=== PATIENT | male | born 1950 | race Caucasian/White ===

== ENCOUNTER 2019-10-17 21:24 | Emergency (ER) | payer MEDICARE, SELFPAY ==
[2019-10-17 21:52] VITALS: BP 130/71; PULSE 113; RESP 18; TEMP 36.5; O2SAT 98; BMI 33.0
--- NOTE | 2019-10-17 23:27 | W.ED.EYEPROB ---
HPI - Eye Problem General: Chief complaint: Eye Problems Stated complaint: LEFT EYE PROBLEMS Time Seen by Provider: 10/17/19 21:48 Source: patient Mode of arrival: ambulatory Limitations: no limitations History of Present Illness: HPI Narrative: Patient comes in today with complaints of eye redness to the left eye. Patient denies any injury or vision change. Patient appears well. Patient appears in no acute distress. Review of Systems General: Reports: 10 or more systems reviewed and unremarkable except in HPI and below Eyes: Reports: eye redness [facility] ED PFSH: Family History (Updated 06/25/19 @ 09:51 by Jessica Foster RN) Mother Diabetes Myocardial infarction Father Hypertension Myocardial infarction Social History Smoking and tobacco status: never smoked Physical Exam Const: COMMON NORMALS: no acute distress and patient oriented x3 GENERAL APPEARANCE: cooperative HENMT: COMMON NORMALS: normocephalic, TM's normal bilaterally and Normal external nose present HEAD & SCALP: normal to inspection and normocephalic NOSE: Normal external nose present TYMPANIC MEMBRANE: TM's normal bilaterally MOUTH: Normal oral and palatal mucosa present THROAT: posterior oropharynx normal Eye: COMMON NORMALS: Equal, round and reactive pupils present VISUAL ACUITY: Yes acuity normal ALIGNMENT: Yes alignment normal CONJUNCTIVA: Yes conjunctival abnormal (To the left eye we note a subconjunctival hemorrhage to the 4 o'clock position with spreading outward redness.) PUPIL: Yes Equal, round and reactive pupils present Neck/C-Spine: COMMON NORMALS: full ROM Lymph: LYMPHATIC: no lymphadenopathy noted Chest: COMMONS NORMALS: normal inspection of the chest Resp: COMMON NORMALS: normal respiratory effort EFFORT & INSPECTION: Yes able to speak in complete sentences Cardio: COMMON NORMALS: regular rate and regular rhythm RATE: regular rate RHYTHM: regular rhythm GI: COMMON NORMALS: non-tender : COMMON NORMALS: Yes no CVA tenderness BLADDER/KIDNEY EXAM: Yes no CVA tenderness Back/Pelvis: COMMON NORMALS: no CVA tenderness and thoracic and lumbar spine normal to inspection Extremity: COMMON NORMALS: normal to inspection Neuro: COMMON NORMALS: patient oriented x3 and moves all extremities Psych: COMMON NORMALS: mental status grossly normal and cooperative Skin: COMMON NORMALS: no rashes or lesions noted GENERAL SKIN EXAM: no rashes or lesions noted Course Vital Signs: Vital signs: Vital Signs Temperature 97.7 F 10/17/19 21:52 Pulse Rate 110 H 06/13/20 23:32 Respiratory Rate 18 10/17/19 23:32 Blood Pressure 129/74 10/17/19 23:32 Pulse Oximetry 97 10/17/19 23:32 MDM - Eye Problem MDM Narrative: Medical decision making narrative: Patient came in for concern of redness to the left eye. On exam we noted a ruptured blood vessel to the left cornea. Patient in normal acuity. Patient had PERRLA. No acute distress was noted. Differential diagnosis includes subconjunctival hemorrhage, laceration, corneal abrasion. Patient was pain-free and no vision normal acuity was noted. Recommended treatment for subconjunctival hemorrhage with follow-up with eye intensive care nurse in 3 days. Patient reported understanding agreed to plan. Discharge Plan Discharge Patient Disposition: Home, Self-Care Clinical Impression: Subconjunctival hemorrhage Qualifiers: Laterality: left Qualified Code(s): H11.32 - Conjunctival hemorrhage, left eye Condition: Stable Prescriptions: No Action pantoprazole 40 mg tablet,delayed release (DR/EC) 40 mg PO DAILY RF: 0 warfarin 5 mg tablet 5 mg PO DAILY RF: 0 pyridostigmine bromide 60 mg tablet 60 mg PO QID RF: 0 loratadine 10 mg tablet 10 mg PO DAILY PRNRF: 0 hydrocodone-acetaminophen 5-325 mg tablet 1 tab PO BID PRNRF: 0 aspirin [Adult Low Dose Aspirin] 81 mg tablet,delayed release (DR/EC) 81 mg PO DAILY RF: 0 fluticasone propionate [Allergy Relief (fluticasone)] 50 mcg/actuation spray,suspension 1 spray INTRANASAL DAILY RF: 0 lisinopril 20 mg tablet 20 mg PO DAILY RF: 0 metformin 1,000 mg tablet 1,000 mg PO BID RF: 0 mycophenolate mofetil [CellCept] 500 mg tablet 500 mg PO BID RF: 0 nitroglycerin [Nitrostat] 0.4 mg tablet, sublingual 0.4 mg SUBLINGUAL Q5M PRNRF: 0 Xarelto 20 mg tablet 20 mg PO DAILY 30 Days Qty: 30 RF: 5 diltiazem HCl 60 mg tablet 60 mg PO BID 30 Days Qty: 60 RF: 3 Discharge Orders: Discharge Order (Routine); Ordered 10/17/19 Ordered By: Maynor Edouard Referrals: Shabbir Mckenzie Jr, MD [Primary Care Provider] - Discharge Diet: Usual diet Discharge Activity: Increase activity as tolerated Patient Instructions: Subconjunctival Hemorrhage (ED) Activity Restrictions/Additional Instructions: Avoid rubbing the eye. Use liquid tears for comfort. Activity as tolerated. Follow-up with eye intensive care nurse in 3 days for recheck. Return to the ER for changes in vision or severe pain to the eye. He usually takes 1 to 2 weeks for the blood to reabsorb. Discharge Date/Time: 10/17/19 23:39 Coding Level of Care Code ED Supervisor Prep for Chg Fwd Exam Comprehensive
[2019-10-17 23:32] VITALS: BP 129/74; PULSE 110; RESP 18; O2SAT 97
[2019-10-17 23:37] VITALS: BP 129/74; PULSE 78; RESP 16; O2SAT 99
== END 2019-10-17 23:39 | disposition home or self-care (01) ==
PROVIDERS: Emergency Provider Nurse Practitioner Family; PCP Family Medicine
DX: H11.32 Conjunctival hemorrhage, left eye (principal); Z79.01 Long term (current) use of anticoagulants; Z79.82 Long term (current) use of aspirin
CPT/HCPCS: 12345; 99282

== ENCOUNTER 2019-11-06 10:21 | Emergency (ER) | payer MEDICARE, SELFPAY ==
[2019-11-06] VITALS (7 sets, daily range): BP systolic 91–132; BP diastolic 42–70; PULSE 90–115; RESP 14–20; TEMP 36.6; O2SAT 93–98; BMI 33.5
--- NOTE | 2019-11-06 10:42 | XR_ITS ---
WS: [id number] PORTABLE CHEST HISTORY: SOB COMPARISON: 12/02/2018 Interval placement of a dialysis catheter via the RIGHT jugular vein in good position since 12/02/2018 . Tips overlie the distal SVC and RIGHT heart. Lungs are clear and well expanded. Minimal blunting of the RIGHT costophrenic angle. Cardiac size: Moderately enlarged cardiac silhouette. Mediastinum/Aorta: Moderate widening of the mediastinum. No osseous abnormality seen. XR/XR chest 1V portable 82030 IMPRESSION: 1. Increasing cardiac size and mediastinal widening. Pericardial effusion shou ld be considered as a possible etiology. 2. No pneumonia. 3. No pulmonary congestion. 4. Small RIGHT effusion suspected.
--- NOTE | 2019-11-06 10:43 | ECG_ITS ---
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 Measurements Intervals [place] Rate: 87 P: 62 [place]: 216 QRS: 58 QRSD: 84 T: 52 QT: 319 QTc: 385 Interpretive Statements SINUS RHYTHM WITH FIRST DEGREE AV BLOCK Compared to ECG 12/02/2018 08:49:32 No significant changes Electronically Signed On 11-07-2019 13:44:36 CDT by Rafiq Rodriguez M.D. [id number] f
--- NOTE | 2019-11-06 10:45 | ED_ITS ---
HPI - General Adult General: Chief complaint: General Medical Stated complaint: back pain/r side pain/abd swelling Time Seen by Provider: 11/06/19 10:31 History of Present Illness: HPI narrative: Patient is a 69-year-old male who comes to the ED with swelling in the abdomen, lower extremities, back pain, decreased urination and shortness of breath. Patient has a past medical history of A. fib, hypertension myasthenia gravis, diabetes and GERD. Patient has had 6 pound weight gain over the last 5 days and his abdominal girth has increased to 5 inches over the last 5 days as well. He is having increased swelling in both right and left lower extremities. Patient says he is having increased shortness of breath as well. Patient reports acute on chronic back pain that has progressively gotten worse over the last 5 days. Patient also reporting decreas ed urine output over the last 24 hours. Denies any hematuria or dysuria. Patient is also complaining of some mild abdominal pain on the left lower quadrant. Denies any fever, chills, cough, chest pain, bladder or bowel symptoms. Associated symptoms: Reports dyspnea; Deny chest pain, headache(s), nausea, rash, palpitations or vomiting Review of Systems Const: Denies: fever(s), chills or fatigue Eyes: Denies: change in vision or eye discomfort ENMT: Denies: throat pain, odynophagia, nasal discharge or nasal congestion Card: Reports: edema and swelling of feet/ankles; Denies: chest pain or palpitations Resp: Reports: dyspnea; Denies: productive cough or non-productive cough GI: Reports: abdominal pain (he thinks abdominal pain is due to increasing lumbar pain); Denies: nausea, vomiting, diarrhea, constipation or hematochezia : Denies: flank pain, difficulty urinating, dysuria or hematuria Musc: Reports: back pain and extremity swelling; Denies: neck pain Skin/Breast: Denies: rash or new lesions Neuro: Denies: headache(s), numbness in extremities or weakness in extremities PFSH ED PFSH: Medical History Anticoagulant long-term use Arthritis HTN (hypertension) Hx of atrial flutter Hyperlipidemia Hypothyroidism Myasthenia gravis Obesity Family History Mother Diabetes Myocardial infarction Father Hypertension Myocardial infarction Social History Smoking and tobacco status: never smoked Physical Exam Const: COMMON NORMALS: patient oriented x3 and alert GENERAL APPEARANCE: cooperative and ill appearing (Patient was laying very still and complaining of intense back pain.) HENMT: COMMON NORMALS: normocephalic HEAD & SCALP: normocephalic MOUTH: Normal oral and palatal mucosa present THROAT: posterior oropharynx normal and uvula midline Eye: COMMON NORMALS: Equal, round and reactive pupils present PUPIL: Yes Equal, round and reactive pupils present Neck/C-Spine: COMMON NORMALS: supple GENERAL: Yes normal visual inspection Resp: COMMON NORMALS: normal respiratory effort, No retractions, No use of accessory muscles and clear to auscultation bilaterally EFFORT & INSPECTION: Yes able to speak in complete sentences, No respiratory distress and No labored AUSCULTATION: clear to auscultation bilaterally Cardio: COMMON NORMALS: regular rate, regular rhythm, S1 normal heart sound present, S2 normal heart sound present, No gallops present (Cardio), No clicks present (Cardio), No murmurs present (Cardio) and Peripheral pulses 2+ throughout RATE: regular rate RHYTHM: regular rhythm HEART SOUNDS: S1 normal heart sound present and S2 normal heart sound present PERIPHERAL PULSES: Peripheral pulses 2+ throughout GI: COMMON NORMALS: Normal to inspection, nondistended, normoactive bowel sounds present, Soft to palpation and no masses PALPATION: Yes Soft to palpation and Yes Tenderness to palpation present (GI) Details: LLQ (Mild tenderness, but patient thinks that this pain is due to acute on chronic lower back pain.) : COMMON NORMALS: Yes no CVA tenderness BLADDER/KIDNEY EXAM: Yes no CVA tenderness Back/Pelvis: COMMON NORMALS: no CVA tenderness Extremity: GENERAL: Yes edema (3+ pitting edema on left lower extremity from feet up into lower leg. 2+ pitting edema in right lower extremity from feet to just above ankle.) Neuro: COMMON NORMALS: patient oriented x3 and moves all extremities SENSORIUM/ORIENTATION: Yes alert Skin: COMMON NORMALS: no rashes or lesions noted GENERAL SKIN EXAM: no rashes or lesions noted and dry skin Course Vital Signs: Vital signs: Vital Signs Temperature 97.9 F 11/06/19 10:34 Pulse Rate 111 H 11/06/19 17:13 Respiratory Rate 20 H 11/06/19 17:13 Blood Pressure 112/70 11/06/19 17:13 Pulse Oximetry 96 11/06/19 16:51 MDM - General Adult MDM Narrative: Medical decision making narrative: Patient presents to the ED with fluid retention, and increased weight gain of 6 pounds in the last 5 days and worsening lower back pain. Patient has a past medical history of hypert ension, myasthenia gravis, hyperlipidemia and hypothyroidism. Patient has 3+ and 2+ pitting edema of right and left lower extremities respectively. EKG showed normal sinus rhythm with no ST segment elevation or depression. Patient's first troponin was 28 and second draw was 22.89. This rule out any acute infarct. Patient's BNP was 167 and CMP was unremarkable. Chest x-ray showed increasing cardiac size and mediastinal widening. CV echo was ordered and showed no pericardial effusion and an ejection fraction of 62%. Venous duplex of both right and left lower extremity showed no clots or DVTs. Patient was given Lasix while here in the ED and had increased urination of fluid while here. Patient was sent home with 1 dose of Lasix to take either tomorrow or Saturday for fluid retention. Patient sees his PCP on Saturday and his junior legal secretary this coming Saturday. He was told to go to those appointments to further discuss possible diuretic to help with fluid retention. He was told he can return to ED if he has any worsening symptoms. Patient understood and agreed with plan. Lab Data: Attestation: I reviewed the patient's lab results. Labs: Lab Results 11/06/19 11/06/19 11/06/19 Range/Units 11:10 11:10 11:10 WBC 10.8 H (4.0-10.0) 10^3/ uL RBC 3.86 L (4.1-5.3) 10^6/u L Hgb 10.2 L (11.7-16.6) g/dL Hct 34.4 L (42.0-52.0) % MCV 89.1 (80-94) fL MCH 26.4 L (28.0-34.0) pg MCHC 29.7 L (30.0-36.0) g/dL RDW 16.1 H (12.1-15.1) % Plt Count 267 (130-400) 10^3/c mm MPV 8.7 (7.4-10.4) fL Neut % (Auto) 82.7 % Lymph % (Auto) 7.0 % [place] % (Auto) 5.7 % Eos % (Auto) 0.2 % Baso % (Auto) 0.2 % Neut # (Auto) 8.9 H (1.8-7.7) 10^3/u L Lymph # (Auto) 0.8 (0.8-4.8) 10^3/u L [place] # (Auto) 0.6 (0.2-0.9) 10^3/u L Eos # (Auto) 0.0 (0.0-0.8) 10^3/u L Baso # (Auto) 0.0 (0.0-0.1) 10^3/u L Nucleated RBC % (a uto) 0.6 % Nucleated RBCs # 0.1 /100WBC ESR 11 H (0-10) mm/hr Sodium 136 (136-145) mmol/L Potassium 4.7 (3.5-5.1) mmol/L Chloride 97 L (98-107) mmol/L Carbon Dioxide 25 (22-29) mmol/L Anion Gap 18.7 (5-19) BUN 17 (8-23) mg/dL Creatinine 0.6 L (0.7-1.2) mg/dL GFR Calculation 134.0 H (90-130) mL/min Glucose 123 H (65-115) mg/dL Calculated Osmolal ity 280 L (285-295) mOsm/k g Calcium 9.6 (8.5-10.5) mg/dL Total Bilirubin 0.2 (0.15-1.2) mg/dL AST 26 (0-40) U/L ALT 54 H (0-41) U/L Alkaline Phosphata se 109 (40-130) IU/L Troponin T Baselin e (0-15) ng/L Troponin T 120 Min [place] (0-15) ng/L Delta Troponin T (0-10) ABS# C-Reactive Protein 1.4 (0.0-4.9) mg/L NT-Pro-B Natriuret Pep 167 H (0-125) pg/mL Total Protein 5.7 L (6.6-8.7) g/dL Albumin 3.7 (3.5-5.2) g/dL Globulin 2.0 (1.3-4.6) g/dL Lipase 43 (13-60) U/L Urine Color (Yellow) Urine Appearance (CLEAR) Urine pH (5-7) Ur Specific Gravit y (1.005-1.030) Urine Protein (Negative) Urine Glucose (UA) (Normal) Urine Ketones (Negative) Urine Blood (Negative) Urine Nitrate (Negative) Urine Bilirubin (NEGATIVE) Urine Urobilinogen (Negative) mg/dL Ur Leukocyte Staci ase (Negative) Urine RBC (0-2) /hpf Urine WBC (0-5) /hpf Ur Squamous Epith Cells (0-5) Calcium Oxalate Cr ystal /hpf Urine Bacteria (NONE) Urine Sperm 11/06/19 11/06/19 11/06/19 Range/Units 11:10 11:51 13:20 WBC (4.0-10.0) 10^3/ uL RBC (4.1-5.3) 10^6/u L Hgb (11.7-16.6) g/dL Hct (42.0-52.0) % MCV (80-94) fL MCH (28.0-34.0) pg MCHC (30.0-36.0) g/dL RDW (12.1-15.1) % Plt Count (130-400) 10^3/c mm MPV (7.4-10.4) fL Neut % (Auto) % Lymph % (Auto) % Stan[place] % (Auto) % Eos % (Auto) % Baso % (Auto) % Neut # (Auto) (1.8-7.7) 10^3/u L Lymph # (Auto) (0.8-4.8) 10^3/u L [place] # (Auto) (0.2-0.9) 10^3/u L Eos # (Auto) (0.0-0.8) 10^3/u L Baso # (Auto) (0.0-0.1) 10^3/u L Nucleated RBC % (a uto) % Nucleated RBCs # /100WBC ESR (0-10) mm/hr Sodium (136-145) mmol/L Potassium (3.5-5.1) mmol/L Chloride (98-107) mmol/L Carbon Dioxide (22-29) mmol/L Anion Gap (5-19) BUN (8-23) mg/dL Creatinine (0.7-1.2) mg/dL GFR Calculation (90-130) mL/min Glucose (65-115) mg/dL Calculated Osmolal ity (285-295) mOsm/k g Calcium (8.5-10.5) mg/dL Total Bilirubin (0.15-1.2) mg/dL AST (0-40) U/L ALT (0-41) U/L Alkaline Phosphata se (40-130) IU/L Troponin T Baselin e 28 H (0-15) ng/L Troponin T 120 Min [place] 22.89 H (0-15) ng/L Delta Troponin T -5.11 L (0-10) ABS# C-Reactive Protein (0.0-4.9) mg/L NT-Pro-B Natriuret Pep (0-125) pg/mL Total Protein (6.6-8.7) g/dL Albumin (3.5-5.2) g/dL Globulin (1.3-4.6) g/dL Lipase (13-60) U/L Urine Color Yellow (Yellow) Urine Appearance Clear (CLEAR) Urine pH 7 (5-7) Ur Specific Gravit y 1.020 (1.005-1.030) Urine Protein Neg (Negative) Urine Glucose (UA) Norm (Normal) Urine Ketones Negative (Negative) Urine Blood Neg (Negative) Urine Nitrate Negative (Negative) Urine Bilirubin Neg (NEGATIVE) Urine Urobilinogen Norm (Negative) mg/dL Ur Leukocyte Staci ase Negative (Negative) Urine RBC None (0-2) /hpf Urine WBC None (0-5) /hpf Ur Squamous Epith Cells None (0-5) Calcium Oxalate Cr ystal Rare /hpf Urine Bacteria Trace (NONE) Urine Sperm 1+ Imaging Data^: CXR: Attestation: I personally reviewed and interpreted this imaging study as follows: Radiologist's impression: [address] [place] [address] XRay Report Signed Patient: Blaine Rodriguez Unit #: [id number] : 1950 [id number] Age/Sex: 69 / M ADM Date: 11/06/19 Loc: ER Room/Bed: Attending Dr: Ordering Provider/Ordering MD: Miguelito Flores Date of Service: 11/06/19 Procedure(s): XR chest 1V portable [id number] Accession Number(s): [id number] Report Number: [id number] WS: [id number] PORTABLE CHEST HISTORY: SOB COMPARISON: 12/02/2018 Interval placement of a dialysis catheter via the RIGHT jugular vein in good position since 12/02/2018. Tips overlie the distal SVC and RIGHT heart. Lungs are clear and well expanded. Minimal blunting of the RIGHT costophrenic angle. Cardiac size: Moderately enlarged cardiac silhouette. Mediastinum/Aorta: Moderate widening of the mediastinum. No osseous abnormality seen. XR/XR chest 1V portable [id number] IMPRESSION: 1. Increasing cardiac size and mediastinal widening. Pericardial effusion should be considered as a possible etiology. 2. No pneumonia. 3. No pulmonary congestion. 4. Small RIGHT effusion suspected. Dictated By: Lorin Herron DO Signed By: Lorin Herron DO Signed Date/Time: 11/06/19 1140 DD/ 1137 Other Imaging: Attestation: I personally reviewed and interpreted this imaging study as follows: Radiologist's impression: Bladder scan was performed by the nurse and urine volume was 77 ml. EKG Data^: EKG 1: Attestation: I personally reviewed and interpreted this EKG as follows: EKG interpretation date: 11/06/19 Interpretation: Sinus rhythm 90 bpm, long P-R interval possible first-degree A-V block. No ST segment depression or depression seen. Computer generated interpretation: Chest X-Ray 11/06/19 10:42 IMPRESSION: 1. Increasing cardiac size and mediastinal widening. Pericardial effusion should be considered as a possible etiology. 2. No pneumonia. 3. No pulmonary congestion. 4. Small RIGHT effusion suspected. Discharge Plan Discharge Patient Disposition: Home, Self-Care Clinical Impression: Retention of fluid, Lumbar back pain Condition: Stable Prescriptions: No Action pantoprazole 40 mg tablet,delayed release (DR/EC) 40 mg PO DAILY RF: 0 pyridostigmine bromide 60 mg tablet 60 mg PO QID RF: 0 hydrocodone-acetaminophen 5-325 mg tablet 1 tab PO QID PRN (Reason: Pain) RF: 0 aspirin [Adult Low Dose Aspirin] 81 mg tablet,delayed release (DR/EC) 81 mg PO DAILY RF: 0 fluticasone propionate [Allergy Relief (fluticasone)] 50 mcg/actuation sp ray,suspension 1 spray INTRANASAL DAILY RF: 0 lisinopril 20 mg tablet 20 mg PO DAILY RF: 0 metformin 1,000 mg tablet 1,000 mg PO BID RF: 0 mycophenolate mofetil [CellCept] 500 mg tablet 1,000 mg PO BID RF: 0 nitroglycerin [Nitrostat] 0.4 mg tablet, sublingual 0.4 mg SUBLINGUAL Q5M PRN (Reason: Chest Pain) RF: 0 Xarelto 20 mg tablet 20 mg PO DAILY 30 Days Qty: 30 RF: 5 diltiazem HCl 60 mg tablet 60 mg PO BID 30 Days Qty: 60 RF: 3 Multiple Vitamins Tablet 1 tab PO DAILY RF: 0 cyclobenzaprine 10 mg Tablet 10 mg PO TID PRN (Reason: unknown) RF: 0 venlafaxine 75 mg tablet 150 mg PO BID RF: 0 prednisone 5 mg Tablet 45 mg PO QAM RF: 0 penicillin V potassium 500 mg tablet 500 mg PO BID RF: 0 Bactrim DS 800-160 mg Tablet 1 tab PO DAILY RF: 0 levothyroxine 25 mcg Tablet 25 mcg PO DAILY RF: 0 Calcium 600 600 mg calcium (1,500 mg) Tablet 1,200 mg PO DAILY RF: 0 melatonin 10 mg Tablet 10 mg PO BEDTIME RF: 0 Soliris See Rx Instructions .ROUTE .COMPLEX RF: 0 Discharge Orders: Discharge Order (Routine); Ordered 11/06/19 Ordered By: Miguelito Flores Referrals: Shabbir Mckenzie Jr, MD [Primary Care Provider] - Discharge Diet: Regular Discharge Activity: Increase activity as tolerated Activity Restrictions/Additional Instructions: Follow-up with your PCP and junior legal secretary as previously scheduled next week. I am sending you home with 1 Lasix and you can either take it tomorrow or Saturday to help with fluid retention. Continue taking all other home medications as prescribed. You can tell your PCP that you came to the ED and EKG was normal and troponins were negative. Chest x-ray showed an enlarged heart and an ultrasound was performed and ruled out a pericardial effusion. Discussed with PCP and junior legal secretary about being put on a diuretic to help with fluid retention. Return to the ER or your medical provider if condition worsens. Please read and understand discharge instructions. If any questions, please ask. Discharge Date/Time: 11/06/19 17:24 Coding Level of Care Code ED Chief Of Safety And Protection for Kenny Fwsalvatore Exam Comprehensive
[2019-11-06 11:19] LABS: Basophils % 0.2 %; Eosinophils % 0.2 %; Hematocrit 34.4 % (42.0-52.0); Hemoglobin 10.2 g/dL (11.7-16.6); Lymphocytes # 0.8 10^3/uL (0.8-4.8); Mean Corpuscular HGB Conc 29.7 g/dL (30.0-36.0); Mean Corpuscular Hemoglobin 26.4 pg (28.0-34.0); Mean Corpuscular Volume 89.1 fL (80-94); Mean Platelet Volume 8.7 fL (7.4-10.4); Monocytes # 0.6 10^3/uL (0.2-0.9); Monocytes % 5.7 %; Neutrophils # 8.9 10^3/uL (1.8-7.7); Neutrophils % 82.7 %; Nucleated Red Blood Cells # 0.1 /100WBC; Nucleated Red Blood Cells % 0.6 %; Platelet Count 267 10^3/cmm (130-400); Red Blood Count 3.86 10^6/uL (4.1-5.3); Red Cell Distribution Width 16.1 % (12.1-15.1); White Blood Count 10.8 10^3/uL (4.0-10.0)
[2019-11-06 11:38] LABS: Troponin(5th) Baseline 28 ng/L (0-15)
[2019-11-06 11:48] LABS: Alanine Aminotransferase 54 U/L (0-41); Albumin Level 3.7 g/dL (3.5-5.2); Alkaline Phosphatase 109 IU/L (40-130); Anion Gap 18.7 (5-19); Aspartate Amino Transferase 26 U/L (0-40); Blood Urea Nitrogen 17 mg/dL (8-23); C Reactive Protein 1.4 mg/L (0.0-4.9); Calcium 9.6 mg/dL (8.5-10.5); Carbon Dioxide 25 mmol/L (22-29); Chloride 97 mmol/L (98-107); Glucose 123 mg/dL (65-115); Lipase 43 U/L (13-60); NT Pro B Type Natriuretic Pept 167 pg/mL (0-125); Osmolality Calculated 280 mOsm/kg (285-295); Potassium 4.7 mmol/L (3.5-5.1); Sodium 136 mmol/L (136-145); Total Bilirubin 0.2 mg/dL (0.15-1.2); Total Protein 5.7 g/dL (6.6-8.7)
[2019-11-06] MEDS: ondansetron 2 mg/ML SDV 2 mL 4 MG IVP (11:59)
[2019-11-06] MEDS: morphine 4 mg/mL SDV 1 mL IVP (12:00)
[2019-11-06 12:03] LABS: Erythrocyte Sedimentation Rate 11 mm/hr (0-10)
[2019-11-06 12:08] LABS: Bilirubin Urine Neg (NEGATIVE); Blood Urine Neg (Negative); Glucose Urine UA Norm (Normal); Ketones Urine Negative (Negative); Leukocyte Esterase Urine Negative (Negative); Nitrate Urine Negative (Negative); Protein Urine Neg (Negative); Urine Appearance Clear (CLEAR); Urine Color Yellow (Yellow); Urobilinogen Urine Norm (Negative); pH Urine 7 (5-7)
[2019-11-06 12:14] LABS: Add Urine Culture? No; Bacteria Urine TRACE; Calcium Oxalate Crystals Urine RARE /hpf; Sperm Urine 1+
--- NOTE | 2019-11-06 12:43 | ECG_ITS ---
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 Measurements Intervals [place] Rate: 90 P: 57 IN: 213 QRS: 60 QRSD: 86 T: 66 QT: 330 QTc: 405 Interpretive Statements SINUS RHYTHM WITH FIRST DEGREE AV BLOCK Poor R wave progression Compared to ECG 11/06/2019 11:08:51 No significant changes Electronically Signed On 11-07-2019 13:58:00 CDT by Rafiq Rodriguez M.D. [email or web address]
[2019-11-06 13:42] LABS: Troponin 5 2HR 22.89 ng/L (0-15)
[2019-11-06 13:47] LABS: Troponin 5 2HR Delta -5.11 ABS# (0-10)
--- NOTE | 2019-11-06 14:34 | USCV_ITS ---
Blaine Rodriguez Age: 69 Gender: M : 1950 Exam Date: 11/06/2019 15:14 Ordering Phys: Miguelito Flores Technologist: Kath Sewell Exam Location: [facility] Indication: swelling HISTORY: Lower extremity swelling. PROCEDURES: Bilaterally, the common femoral, superficial femoral, profunda femoral, popliteal, posterior tibial, greater saphenous veins, and the peroneal trunk were identified and interrogated in the standard fashion. FINDINGS: Negative for DVT and superficial thrombus in both lower extremities. The veins were found to be easily compressible with spontaneous blood flow. Non pulsatile flow pattern. CONCLUSIONS No evidence of DVT in the above-mentioned identifiable veins. Dr Rafiq Rodriguez MD [facility] (Electronically Signed) Final Date: 06 November 2019 17:56 S
--- NOTE | 2019-11-06 14:34 | USCV_ITS ---
Blaine Rodriguez Age: 69 Gender: M : 1950 Exam Date: 11/06/2019 14:53 Ordering Phys: Miguelito Flores Technologist: Kath Sewell [place] [facility] [place]: [place] heart BP: / HR: 94 Rhythm: Sinus Technical Quality: Adequate MEASUREMENTS (Male / Female) Normal Values 2D ECHO LV Diastolic Diameter PLAX 4.2 cm 4.2 - 5.9 / 3.9 - 5.3 cm LV Systolic Diameter PLAX 2.2 cm IVS Diastolic Thickness 1.3 cm 0.6 - 1.0 / 0.6 - 0.9 cm IVS Systolic Thickness 1.7 cm LVPW Diastolic Thickness 0.6 cm 0.6 - 1.0 / 0.6 - 0.9 cm LVPW Systolic Thickness 1.8 cm LVOT Diameter 2.1 cm LV Ejection Fraction 2D Teich 78.6 % LV Ejection Fraction MOD 2C 63.4 % LV Ejection Fraction 2C AL 64.3 % LA Diameter 3.0 cm LA Width 3.2 cm LA Height 3.5 cm RA Width 2.8 cm RA Height 3.8 cm M-MODE LV Diastolic Diameter MM 6.8 cm 4.2 - 5.9 / 3.9 - 5.3 cm LV Systolic Diameter MM 4.8 cm LV Ejection Fraction MM Teich 54.5 % IVS Diastolic Thickness MM 0.9 cm 0.6 - 1.0 / 0.6 - 0.9 cm IVS Systolic Thickness MM 1.3 cm LVPW Diastolic Thickness MM 2.1 cm 0.6 - 1.0 / 0.6 - 0.9 cm LVPW Systolic Thickness MM 2.9 cm Aortic Annulus Diameter 3.7 cm LA Ao Ratio MM 0.8 MV E Point Septal Separation 0.5 cm DOPPLER PV Peak Velocity 94.0 cm/s RV Acceleration Time 0.1 s FINDINGS Left Ventricle Normal left ventricular size and systolic function, EF 62 %. No regional wall motion abnormalities. Right Ventricle Normal right ventricular size and systolic function. Right Atrium The right atrium is normal in size. Left Atrium The left atrium is normal in size. Mitral Valve No gross abnormalities noted . Aortic Valve Thickened aortic valve. Tricuspid Valve No gross abnormalities noted Pulmonic Valve Very thickened. Pericardium No pericardial effusion. Aorta Normal aortic annulus size. CONCLUSIONS Normal left ventricular size and systolic function, EF 62 %. No regional wall motion abnormalities. Thickened aortic valve. There is no pericardial effusion. There are no intracardiac masses. Technically somewhat difficult study Compared to the previous study from 08/10/2018, there may not be a significant change Corrected copy of the study from 11/06/2019 Dr Rafiq Rodriguez MD [facility] (Electronically Signed) Final Date: 06 November 2019 17:27 Amended: 06 November 2019 17:33 C
[2019-11-06] MEDS: FUROsemide 10 mg/mL SDV 4mL 40 MG IVP (15:11)
[2019-11-06] MEDS: FUROsemide 40 mg Tablet PO (16:48)
[2019-11-06] MEDS: FUROsemide 20 mg Tablet PO (17:24)
== END 2019-11-06 17:24 | disposition home or self-care (01) ==
PROVIDERS: Emergency Provider Physician Assistant; PCP Family Medicine
DX: M54.5 Low back pain (principal); R60.9 Edema, unspecified; Z79.82 Long term (current) use of aspirin; I10 Essential (primary) hypertension; I48.92 Unspecified atrial flutter; E78.5 Hyperlipidemia, unspecified; M79.89 Other specified soft tissue disorders
CPT/HCPCS: 12345; 36415; 51798; 71045; 80053; 81001; 83690; 83880; 84484; 85025; 85651; 86140; 93005; 93308; 93970; 96374; 96375; 99283; 99284; 99285; J1940; J2270; J2405

== ENCOUNTER 2020-02-08 09:28 | Inpatient (IN) | payer MEDICARE, SELFPAY ==
[2020-02-08] VITALS (8 sets, daily range): BP systolic 90–115; BP diastolic 55–73; PULSE 98–163; RESP 19–36; TEMP 35.7–36.7; O2SAT 93–98; BMI 34.4
[2020-02-08] MEDS: metoprolol tartrate 1 mg/1 mL SDV 5 mL 2.5 MG IV (09:44)
--- NOTE | 2020-02-08 09:49 | ED_ITS ---
HPI - SOB/Dyspnea General: Chief Complaint: Shortness of Breath/Dyspnea Stated Complaint: ELEVATED HR, LOW BP, LOW BACK PAIN Time Seen by Provider: 02/08/20 09:48 History of Present Illness: HPI Narrative: 61-year-old male presents emergency room with complaint of shortness of breath and rapid heart rate. He has a history of myasthenia gravis and gets plasmapheresis every few weeks. He reports having a rapid heart rate with shortness of breath but no episodes of chest pain this morning he recently had his lisinopril decreased due to hypotension. He still on Cardizem. He did not have any chest pain but he did take a sublingual nitro just prior to coming in. He is mildly short of breath when I talked to him. He denies any recent illness is not been around anyone with COVID he has not had any cough or diarrhea. MD elicited complaint: shortness of breath Pertinent past history: other (Myasthenia gravis, history of a flutter) Onset (ago): minute(s) Timing: constant Severity: severe Exacerbating factors: exertion Relieving factors: rest Known history of: other (Myasthenia gravis and atrial flutter) Associated symptoms: Reports lightheadedness and palpitations; Deny abdominal pain, chest congestion, chest pain, cough, diaphoresis, dizziness, extremity pain, fever(s), hemoptysis, myalgias, nausea, orthopnea, paresthesias, polydipsia, polyuria, rash, sense of impending doom, syncope or vomiting Treatment prior to arrival: none Review of Systems Const: Denies: fever(s) or diaphoresis ENMT: Denies: throat pain, ear or mastoid pain, nasal discharge or nasal c ongestion Card: Reports: palpitations and lightheadedness; Denies: chest pain, syncope or orthopnea Resp: Reports: dyspnea; Denies: productive cough, non-productive cough, hemoptysis or chest congestion GI: Denies: abdominal pain, nausea or vomiting : Denies: flank pain, dysuria, urinary frequency or urinary urgency Musc: Denies: extremity pain Skin/Breast: Denies: rash or pruritus Neuro: Denies: dizziness Endo: Denies: polyuria or polydipsia PFS ED PFSH: Medical History Anticoagulant long-term use Xarelto Arthritis HTN (hypertension) Hx of atrial flutter Hyperlipidemia Hypothyroidism Immunocompromised state Myasthenia gravis Obesity Port-A-Cath in place Surgical History History of abdominal surgery Prior PEG tube placement and subsequent removal History of rhinoplasty History of right knee surgery History of rotator cuff surgery Right Family History Mother Diabetes Myocardial infarction Father Hypertension Myocardial infarction Social History Smoking and tobacco status: never smoked Alcohol intake: never Substance/Drug Use: never Physical Exam Const: COMMON NORMALS: no acute distress GENERAL APPEARANCE: cooperative and comfortable ORIENTATION/CONSCIOUSNESS: Yes awake, Yes oriented to person, Yes oriented to place and Yes oriented to time HENMT: COMMON NORMALS: normocephalic, atraumatic and hearing grossly normal bilaterally HEAD & SCALP: normocephalic and atraumatic Eye: COMMON NORMALS: Equal, round and reactive pupils present, EOMs intact bilaterally, conjunctivae normal and no scleral icterus CONJUNCTIVA: Yes conjunctivae normal PUPIL: Yes Equal, round and reactive pupils present Neck/C-Spine: COMMON NORMALS: full ROM, no lymphadenopathy, supple and no JVD Lymph: LYMPHATIC: no lymphadenopathy noted and no lymphedema noted Resp: COMMON NORMALS: normal respiratory effort, No retractions, No use of accessory muscles and clear to auscultation bilaterally AUSCULTATION: clear to auscultation bilaterally Cardio: COMMON NORMALS: no JVD, regular rate, regular rhythm and No murmurs present (Cardio) RATE: regular rate RHYTHM: regular rhythm GI: COMMON NORMALS: Soft to palpation and No hepatosplenomegaly present AUSCULTATION: Yes normoactive bowel sounds PALPATION: Yes Soft to palpation, No Tenderness to palpation present (GI), No Guarding due to palpation present (GI) and Yes No hepatosplenomegaly present Extremity: COMMON NORMALS: normal to inspection, capillary refill normal, no clubbing, cyanosis or edema, no calf tenderness and no pedal edema Neuro: SENSORIUM/ORIENTATION: Yes oriented to person, Yes oriented to place and Yes oriented to time Skin: COMMON NORMALS: no rashes or lesions noted GENERAL SKIN EXAM: no rashes or lesions noted Course Vital Signs: Vital signs: Vital Signs Temperature 97.9 F 02/09/20 04:00 Pulse Rate 88 02/09/20 07:20 Respiratory Rate 18 02/09/20 04:00 Blood Pressure 119/67 02/09/20 04:00 Pulse Oximetry 94 02/09/20 07:20 MDM - SOB/Dyspnea MDM Narrative: Medical decision making narrative: Rate controlled in the emergency room with Bev. We will go ahead and admit discussed Dr. Sharp orders have been written and she will be attending. Chest x-ray has some questionable findings. She meant he may need follow-up views as well as close monitoring. He has no respiratory symptoms at this time. Lab Data: Labs: Lab Results 02/08/20 02/08/20 02/08/20 Range/Units 09:48 09:48 09:48 WBC 15.4 H (4.0-10.0) 10^3/ uL RBC 4.19 (4.1-5.3) 10^6/u L Hgb 9.3 L (11.7-16.6) g/dL Hct 34.6 L (42.0-52.0) % MCV 82.6 (80-94) fL MCH 22.2 L (28.0-34.0) pg MCHC 26.9 L (30.0-36.0) g/dL RDW 17.9 H (12.1-15.1) % Plt Count 610 H (130-400) 10^3/c mm MPV 9.2 (7.4-10.4) fL Neut % (Auto) 71.3 % Lymph % (Auto) 16.2 % Dickinson % (Auto) 9.5 % Eos % (Auto) 0.7 % Baso % (Auto) 0.6 % Neut # (Auto) 10.98 H (1.8-7.7) 10^3/u L Lymph # (Auto) 2.5 (0.8-4.8) 10^3/u L Dickinson # (Auto) 1.5 H (0.2-0.9) 10^3/u L Eos # (Auto) 0.1 (0.0-0.8) 10^3/u L Baso # (Auto) 0.1 (0.0-0.1) 10^3/u L Nucleated RBC % (a uto) 0.7 % Nucleated RBCs # 0.1 /100WBC PT (12.1-14.9) SECO NDS INR (0.8-1.2) Sodium 136 (136-145) mmol/L Potassium 4.5 (3.5-5.1) mmol/L Chloride 96 L (98-107) mmol/L Carbon Dioxide 19 L (22-29) mmol/L Anion Gap 25.5 H (5-19) BUN 25 H (8-23) mg/dL Creatinine 1.2 (0.7-1.2) mg/dL GFR Calculation 60.2 L (90-130) mL/min Glucose 191 H (65-115) mg/dL Calculated Osmolal ity 292 (285-295) mOsm/k g Calcium 10.4 (8.5-10.5) mg/dL Phosphorus (2.5-4.5) mg/dL Magnesium (1.7-2.3) mg/dL Total Bilirubin 0.3 (0.15-1.2) mg/dL AST 22 (0-40) U/L ALT 35 (0-41) U/L Alkaline Phosphata se 106 (40-130) IU/L Troponin T Baselin e 70 H (0-15) ng/L Total Protein 6.3 L (6.6-8.7) g/dL Albumin 4.6 (3.5-5.2) g/dL Globulin 1.7 (1.3-4.6) g/dL TSH (0.27-4.20) uIU/ mL 02/08/20 02/08/20 Range/Units 09:48 09:48 WBC (4.0-10.0) 10^3/ uL RBC (4.1-5.3) 10^6/u L Hgb (11.7-16.6) g/dL Hct (42.0-52.0) % MCV (80-94) fL MCH (28.0-34.0) pg MCHC (30.0-36.0) g/dL RDW (12.1-15.1) % Plt Count (130-400) 10^3/c mm MPV (7.4-10.4) fL Neut % (Auto) % Lymph % (Auto) % Dickinson % (Auto) % Eos % (Auto) % Baso % (Auto) % Neut # (Auto) (1.8-7.7) 10^3/u L Lymph # (Auto) (0.8-4.8) 10^3/u L Dickinson # (Auto) (0.2-0.9) 10^3/u L Eos # (Auto) (0.0-0.8) 10^3/u L Baso # (Auto) (0.0-0.1) 10^3/u L Nucleated RBC % (a uto) % Nucleated RBCs # /100WBC PT 14.70 (12.1-14.9) SECO NDS INR 1.11 (0.8-1.2) Sodium (136-145) mmol/L Potassium (3.5-5.1) mmol/L Chloride (98-107) mmol/L Carbon Dioxide (22-29) mmol/L Anion Gap (5-19) BUN (8-23) mg/dL Creatinine (0.7-1.2) mg/dL GFR Calculation (90-130) mL/min Glucose (65-115) mg/dL Calculated Osmolal ity (285-295) mOsm/k g Calcium (8.5-10.5) mg/dL Phosphorus 4.4 (2.5-4.5) mg/dL Magnesium 2.3 (1.7-2.3) mg/dL Total Bilirubin (0.15-1.2) mg/dL AST (0-40) U/L ALT (0-41) U/L Alkaline Phosphata se (40-130) IU/L Troponin T Baselin e (0-15) ng/L Total Protein (6.6-8.7) g/dL Albumin (3.5-5.2) g/dL Globulin (1.3-4.6) g/dL TSH 6.71 H (0.27-4.20) uIU/ mL Discharge Plan Discharge Patient Disposition: Admitted As Inpatient Admit Provider: Darling Sharp Clinical Impression: Atrial fibrillation with RVR, Anticoagulant long-term use, HTN (hypertension), Myasthenia gravis, Hx of atrial flutter Condition: Stable Discharge Date/Time: 02/08/20 12:20 Coding Level of Care Code ED Under Trimmer for Kenny Fwd Exam Comprehensive
--- NOTE | 2020-02-08 10:46 | XR_ITS ---
WS: [id number] XR chest 1V portable [id number] REASON FOR EXAM: dyspnea/cough FINDINGS: Comparison examination of 11/06/2019. Right internal jugular dialysis catheter remains in position. There is moderate cardiomegaly unchanged compared to the previous study. There appears to be some infiltrative change in the left lung base with obscuration of the left hemid iaphragmatic contour. There also appears to be minimal blunting of the right costophrenic angle. XR/XR chest 1V portable [id number] IMPRESSION: Cardiomegaly. Subtle changes in both hemithoraces which may indicate fluid overload.
--- NOTE | 2020-02-08 10:46 | ECG_ITS ---
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 Measurements Intervals [place] Rate: 159 P: [place]: -1 QRS: 77 QRSD: 84 T: 72 QT: 295 QTc: 481 Interpretive Statements ATRIAL FLUTTER/TACHYCARDIA WITH RAPID VENTRICULAR RESPONSE Compared to ECG 11/06/2019 13:12:26 ST (T wave) deviation now present Electronically Signed On 02-08-2020 17:34:14 CDT by Levi Covington M.D. [id number] f
[2020-02-08 10:56] LABS: Basophils # 0.1 10^3/uL (0.0-0.1); Basophils % 0.6 %; Eosinophils # 0.1 10^3/uL (0.0-0.8); Eosinophils % 0.7 %; Hematocrit 34.6 % (42.0-52.0); Hemoglobin 9.3 g/dL (11.7-16.6); Lymphocytes # 2.5 10^3/uL (0.8-4.8); Lymphocytes % 16.2 %; Mean Corpuscular HGB Conc 26.9 g/dL (30.0-36.0); Mean Corpuscular Hemoglobin 22.2 pg (28.0-34.0); Mean Corpuscular Volume 82.6 fL (80-94); Mean Platelet Volume 9.2 fL (7.4-10.4); Monocytes # 1.5 10^3/uL (0.2-0.9); Monocytes % 9.5 %; Neutrophils # 10.98 10^3/uL (1.8-7.7); Neutrophils % 71.3 %; Nucleated Red Blood Cells # 0.1 /100WBC; Nucleated Red Blood Cells % 0.7 %; Platelet Count 610 10^3/cmm (130-400); Red Blood Count 4.19 10^6/uL (4.1-5.3); Red Cell Distribution Width 17.9 % (12.1-15.1); White Blood Count 15.4 10^3/uL (4.0-10.0)
[2020-02-08 11:05] LABS: Alanine Aminotransferase 35 U/L (0-41); Albumin Level 4.6 g/dL (3.5-5.2); Alkaline Phosphatase 106 IU/L (40-130); Anion Gap 25.5 (5-19); Aspartate Amino Transferase 22 U/L (0-40); Blood Urea Nitrogen 25 mg/dL (8-23); Calcium 10.4 mg/dL (8.5-10.5); Carbon Dioxide 19 mmol/L (22-29); Chloride 96 mmol/L (98-107); Globulin 1.7 g/dL (1.3-4.6); Glomerular Filtration Rate 60.2 mL/min (90-130); Glucose 191 mg/dL (65-115); Osmolality Calculated 292 mOsm/kg (285-295); Potassium 4.5 mmol/L (3.5-5.1); Sodium 136 mmol/L (136-145); Total Bilirubin 0.3 mg/dL (0.15-1.2); Total Protein 6.3 g/dL (6.6-8.7); Troponin(5th) Baseline 70 ng/L (0-15)
--- NOTE | 2020-02-08 11:36 | PM.HP ---
Providers/Chief Complaint Admitting Physician: Darling Sharp DO Primary Care Provider: Shabbir Mckenzie Jr, MD Chief Complaint: ELEVATED HR, LOW BP, LOW BACK PAIN History of Present Illness Blaine Rodriguez is a 69 year old male with a past medical history of myasthenia gravis, atrial fibrillation, hypothyroidism, diabetes and hyperlipidemia that presented to the emergency department today for palpitations. He stated that his symptoms have been progressive over the past 2 days. He stated that he has recently had issues with low blood pressure therefore his lisinopril was just stopped approximately 2 weeks ago. He stated that he is having increasing back pain that is been ongoing since 2002, the Celina was just not helping his pain any longer due to this the palpitations and the low blood pressure he came into the ER today for further evaluation and treatment. He stated that he has followed with a neurologist in [place] due to myasthenia gravis. Stated that he is on CellCept, Solaris injection every 2 weeks and is due for this injection tomorrow, also receiving plasmapheresis was on a 2-week cycle now moving to every 4 weeks. Patient also states that he is on a slow prednisone taper and is currently on 35 mg daily. Patient states that he is on Cardizem 60 mg twice a day and has been followed by cardiology, Dr. Cuellar in the past. 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 He states that he does take Xarelto due to his atrial fibrillation. Recently seen by new primary care provider, Dr. Tidwell, for refill of his anticoagulation. Patient denies any recent medication changes other than the lisinopril and continued gradual decrease in prednisone. Patient reports that he is chronically in atrial fibrillation and occasionally will have issues with rate control. Patient was seen and evaluated in the emergency department noted to have concern for atrial fibrillation with RVR, given IV metoprolol 5 mg had some improvement when his heart rate and then started on a Cardizem drip. Patient reports that he did take his medication, Cardizem, this morning. Review of Systems Const: Reports: fatigue and malaise; Denies: fever(s) or chills Eyes: Reports: change in vision (Chronic) ENMT: Denies: nasal congestion Card: Reports: palpitations; Denies: chest pain or edema Resp: Denies: dyspnea, productive cough or hemoptysis GI: Denies: abdominal pain, nausea, vomiting, diarrhea, constipation, hematochezia or melena : Denies: dysuria or hematuria Musc: Denies: extremity pain or muscle cramps Skin/Breast: Denies: rash or new lesions Neuro: Reports: dizziness (When standing quickly); Denies: headache(s) Psych: Denies: anxiety or depression Endo: Denies: polyuria or hot flashes Deonte/Lymph: Denies: easy bruising or easy bleeding Medications/Allergies Home Medications Medication Instructions Recorded Confirmed Last Taken Type aspirin 81 mg tablet,delayed 81 mg PO DAILY 06/25/19 02/08/20 02/08/20 08:00 History release fluticasone propionate 50 1 spray INTRANASAL DAILY 06/25/19 02/08/20 02/07/20 History mcg/actuation nasal spray,suspension hydrocodone 5 mg-acetaminophen 325 1 tab PO QID PRN 06/25/19 02/08/20 02/07/20 History mg tablet lisinopril 20 mg tablet 20 mg PO DAILY 06/25/19 02/08/20 02/07/20 History metformin 1,000 mg tablet 1,000 mg PO BID 06/25/19 02/08/20 02/08/20 07:00 History mycophenolate mofetil 500 mg tablet 1,000 mg PO BID 06/25/19 02/08/20 02/08/20 07:00 History pantoprazole 40 mg tablet,delayed 40 mg PO DAILY 06/25/19 02/08/20 02/08/20 08:00 History release pyridostigmine bromide 60 mg tablet 60 mg PO QID 06/25/19 02/08/20 02/08/20 07:00 History Soliris See Rx Instructions .ROUTE .COMPLEX 11/06/19 02/08/20 11/03/19 History calcium carbonate [Calcium 600] 1,200 mg PO DAILY 11/06/19 02/08/20 02/07/20 History cyclobenzaprine 10 mg PO TID PRN 11/06/19 02/08/20 Unknown History levothyroxine 25 mcg PO DAILY 11/06/19 02/08/20 02/08/20 07:00 History melatonin 10 mg PO BEDTIME 11/06/19 02/08/20 02/07/20 History multivitamin [Multiple Vitamins] 1 tab PO DAILY 11/06/19 02/08/20 02/07/20 History penicillin V potassium 500 mg PO BID 11/06/19 02/08/20 02/08/20 07:00 History prednisone 45 mg PO QAM 11/06/19 02/08/20 02/08/20 08:00 History venlafaxine 150 mg PO BID 11/06/19 02/08/20 02/08/20 08:00 History furosemide 40 mg tablet 40 mg PO DAILY 11/12/19 02/08/20 02/08/20 07:00 History potassium chloride 20 mEq 20 meq PO DAILY #30 tab 11/12/19 02/08/20 02/08/20 08:00 Rx tablet,extended release diltiazem HCl 60 mg tablet 60 mg PO BID #180 tab 12/07/19 02/08/20 02/08/20 08:00 Rx nitroglycerin 0.4 mg sublingual 0.4 mg SUBLINGUAL Q5M PRN #25 tab 12/28/19 02/08/20 Unknown Rx tablet rivaroxaban 20 mg tablet 20 mg PO DAILY 30 Days #30 tab 12/28/19 02/08/20 02/07/20 Rx A-C-E-zinc ox-cupric ox-lutein 1 tab PO TID 02/08/20 02/08/20 02/07/20 History [Ocular Vitamins] docusate sodium 100 mg PO BID PRN 02/08/20 02/08/20 Unknown History Allergies Allergy/AdvReac Type Severity Reaction Status Date / Time atorvastatin [From Lipitor] Allergy NA Verified 12/28/19 10:47 PFSH Acute PFSH: Medical History Anticoagulant long-term use Xarelto Arthritis HTN (hypertension) Hx of atrial flutter Hyperlipidemia Hypothyroidism Immunocompromised state Myasthenia gravis Obesity Port-A-Cath in place Surgical History History of abdominal surgery Prior PEG tube placement and subsequent removal History of rhinoplasty History of right knee surgery History of rotator cuff surgery Right Family History Mother Diabetes Myocardial infarction Father Hypertension Myocardial infarction Social History (Reviewed 02/09/20 @ 08:02 by DALILA Osei Smoking and tobacco status: never smoked Alcohol intake: never Substance/Drug Use: never Vitals/I&O/Wt Last Vital Signs Temp 96.2 F L 02/08/20 09:33 Pulse 163 H 02/08/20 09:33 Resp 36 H 02/08/20 09:33 BP 103/71 02/08/20 09:33 Pulse Ox 98 02/08/20 09:33 Weight last 48 hrs Weight 108.862 kg Physical Exam Const: COMMON NORMALS: patient oriented x3 and alert GENERAL APPEARANCE: cooperative ORIENTATION/CONSCIOUSNESS: Yes awake, Yes oriented to person, Yes oriented to place and Yes oriented to time HENMT: COMMON NORMALS: normocephalic and atraumatic HEAD & SCALP: normocephalic and atraumatic Eye: COMMON NORMALS: Equal, round and reactive pupils present PUPIL: Yes Equal, round and reactive pupils present Neck/C-Spine: COMMON NORMALS: supple GENERAL: Yes normal visual inspection Resp: COMMON NORMALS: normal respiratory effort and clear to auscultation bilaterally EFFORT & INSPECTION: Yes able to speak in complete sentences AUSCULTATION: clear to auscultation bilaterally, no rhonchi and no wheezes Cardio: COMMON NORMALS: No murmurs present (Cardio) OTHER: Irregularly irregular, no appreciable murmur GI: COMMON NORMALS: Soft to palpation and non-tender INSPECTION: No abdominal distension AUSCULTATION: Yes normoactive bowel sounds PALPATION: Yes Soft to palpation Extremity: COMMON NORMALS: no clubbing, cyanosis or edema and no calf tenderness Neuro: COMMON NORMALS: patient oriented x3, CN's II-XII intact bilaterally and moves all extremities SENSORIUM/ORIENTATION: Yes alert, Yes oriented to person, Yes oriented to place and Yes oriented to time SPEECH: speech normal Psych: COMMON NORMALS: mental status grossly normal and cooperative Skin: GENERAL SKIN EXAM: no rashes or lesions noted Data : 02/09/20 04:01 02/09/20 04:01 CXR: I personally reviewed and interpreted this imaging study as follows: Radiologist's impression: FINDINGS: Comparison examination of 11/06/2019. Right internal jugular dialysis catheter remains in position. There is moderate cardiomegaly unchanged compared to the previous study. There appears to be some infiltrative change in the left lung base with obscuration of the left hemidiaphragmatic contour. There also appears to be minimal blunting of the right costophrenic angle. XR/XR chest 1V portable [id number] IMPRESSION: Cardiomegaly. Subtle changes in both hemithoraces which may indicate fluid overload. A&P Assessment and plan (1) Atrial fibrillation with RVR: Admit to cardiac stepdown unit Telemetry Serial EKG and troponin Check orthostatic vital signs, patient appears to be somewhat dry based on his symptoms and recent increase in Lasix. However chest x-ray shows some potential CHF exacerbation. Will check BNP and follow-up with orthostatic vital signs We will check magnesium and phosphorus along with TSH Placed on treatment dose Lovenox while hospitalized Given IV metoprolol and placed on a Cardizem drip in the ED, will give plain Cardizem and work on increasing patient's home Cardizem dosing. He is typically on 60 mg every 12 hours Patient's blood pressure was initially low in the ED, will continue close monitoring Repeat echocardiogram Status: Acute (2) HTN (hypertension): Currently with hypotension Patient's lisinopril was discontinued on 01/26/2020 by his neurologist Status: Acute (3) Myasthenia gravis: Followed by neurology in [place], Dr. Muhammad Currently on plasmapheresis, previously every 2 weeks, now transitioning to q. 4 weeks. Continue on CellCept, continue on prednisone 35 mg/day Continue on Solaris infusions Status: Acute (4) Immunocompromised state: Immunocompromise state due to chronic medications as above Patient appears to be on Bactrim prophylactic dosing along with penicillin Status: Acute (5) Anticoagulant long-term use: On Xarelto currently at home, transition to Lovenox while hospitalized Status: Acute Additional A&P Information Question of infiltrate versus fluid overload on chest x-ray: We will reevaluate with 2 view chest x-ray, patient does not have any respiratory symptoms, no fevers or chills, does have leukocytosis but is on chronic steroids. Patient is immunocompromised so we will continue to monitor closely. Patient does not appear to be fluid overloaded at this time, reports orthostatic concerns therefore will check orthostatic vital signs. Patient does not have any respiratory symptoms, no increasing oxygen requirements. Will check echocardiogram and also check BNP Diet: Cardiac, carbohydrate consistent CODE STATUS: Full code DVT prophylaxis: On therapeutic anticoagulation as above Attestations Medical Necessity Statement*: Observation due to atrial fibrillation with RVR, expected stay less than 2 midnights Coding Level of Care Code Acute Progress Man for Chg Fwd Exam Comprehensive Diagnoses Atrial fibrillation with RVR I48.91 HTN (hypertension) I10 Myasthenia gravis G70.00 Immunocompromised state D89.9 Anticoagulant long-term use Z79.01
[2020-02-08 12:21] LABS: Troponin 5 2HR 54.67 ng/L (0-15)
[2020-02-08 12:22] LABS: Troponin 5 2HR Delta -15.33 ABS# (0-10)
[2020-02-08 12:45] LABS: INR 1.11 (0.8-1.2)
--- NOTE | 2020-02-08 12:45 | PC.NURSE ---
Patient to CSU from ER at 1234. Patient resting in bed. Denies any CP or SOB. Patient a flutter, rate controlled on telemetry. Patient oriented to room and call light. No further needs identified at this time. Nurse to continue to monitor.
--- NOTE | 2020-02-08 12:46 | ECG_ITS ---
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 Measurements Intervals [place] Rate: 95 P: [place]: -1 QRS: 72 QRSD: 77 T: 75 QT: 326 QTc: 411 Interpretive Statements ATRIAL FLUTTER/TACHYCARDIA Compared to ECG 02/08/2020 09:39:16 ST (T wave) deviation no longer present Myocardial infarct finding no longer present Electronically Signed On 02-08-2020 17:48:22 CDT by Levi Covington M.D. [email or web address] baptist medical centerMy Mega Bookstoregeorgetown behavioral hospital.[email or web address]/store/OM/[id number]
[2020-02-08] MEDS: oxyCODONE-APAP 10-325 mg Tablet 1 TAB PO (12:48)
[2020-02-08 13:00] LABS: Magnesium 2.3 mg/dL (1.7-2.3); Phosphorus 4.4 mg/dL (2.5-4.5); Thyroid Stimulating Hormone 6.71 uIU/mL (0.27-4.20)
--- NOTE | 2020-02-08 13:20 | XRR_ITS ---
PROCEDURE INFORMATION: Exam: XR Chest, 2 Views Exam date and time: 02/08/2020 1:53 PM Age: 69 years old Clinical indication: Condition or disease; Lung condition and disease; Pneumonia; Other: Not specified; Prior surgery; Additional info: Repeat cxr, pneumonia TECHNIQUE: Imaging protocol: XR of the chest Views: 2 views. COMPARISON: CR XR chest 1V portable [id number] 02/08/2020 10:50 AM FINDINGS: Tubes, catheters and devices: Right central venous catheter tip in the distal superior vena cava. Lungs: Unremarkable. No consolidation. Pleural space: Unremarkable. No pleural effusion. No pneumothorax. Heart/Mediastinum: Minimal cardiomegaly. Bones/joints: No acute findings. XR/XR chest 2V* [id number] IMPRESSION: No acute findings.
--- NOTE | 2020-02-08 13:29 | PC.NURSE ---
Patient to chest xray at this time.
[2020-02-08] MEDS: dilTIAZem 30 mg Tablet PO (14:00)
[2020-02-08] MEDS: enoxaparin 100 mg/mL Syringe SUBCUT (14:00)
[2020-02-08 14:37] LABS: Add Urine Microscopic? YES; Bilirubin Urine 1+ (Negative); Blood Urine Neg (Negative); Glucose Urine UA Norm (Normal); Ketones Urine 1+ (Negative); Leukocyte Esterase Urine Negative (Negative); Nitrate Urine Negative (Negative); Protein Urine Trace (Negative); Urine Appearance Clear (CLEAR); Urine Color Yellow (Yellow); Urobilinogen Urine Norm (Negative); pH Urine 5 (5-7)
[2020-02-08 14:38] LABS: Add Urine Culture? No; Bacteria Urine 1+ /hpf; Hyaline Casts Urine 0-4 /lpf; Mucus Urine 4+ /hpf; Squamous Epithelial Cell Urine 0-4 /hpf (0-5); WBC Urine 0-4 /hpf (0-5)
--- NOTE | 2020-02-08 14:45 | PC.NURSE ---
HR sustaining to 153 afib w/rvr Called dr nava via voalte phone. Informed her on pt's HR 153, and BP -120/78. Received order to give 5 mg IVP of metoprolol one time and to monitor for response.
--- NOTE | 2020-02-08 15:00 | PC.NURSE ---
Pt HR decrease to 95-110s post IVP Metoprolol 5 mg one time order Will monitor. VS remain stable. Pt hemodynamically stable. will monitor.
[2020-02-08] MEDS: metoprolol tartrate 1 mg/1 mL SDV 5 mL 5 MG IV (15:12)
[2020-02-08 16:23] LABS: Glucose Point of Care 282 mg/dL (70-110)
--- NOTE | 2020-02-08 16:46 | ECG_ITS ---
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 Measurements Intervals [place] Rate: 153 P: TN: -1 QRS: 66 QRSD: 72 T: -60 QT: 257 QTc: 411 Interpretive Statements ATRIAL FLUTTER/TACHYCARDIA WITH RAPID VENTRICULAR RESPONSE ST DEVIATION AND MODERATE T-WAVE ABNORMALITY, CONSIDER INFERIOR ISCHEMIA [-0.1+ mV T WAVE IN II/aVF] Compared to ECG 02/08/2020 13:03:40 T-wave abnormality now present Possible ischemia now present Electronically Signed On 02-09-2020 20:57:08 CDT by Rafiq Rodriguez M.D. [id number]
[2020-02-08 16:50] LABS: NT Pro B Type Natriuretic Pept 1743 pg/mL (0-125); Troponin 5 6HR 43.36 ng/L (0-15)
--- NOTE | 2020-02-08 17:00 | PC.NURSE ---
HR sustaining to 140s to [address] Sharp on pt's HR went back up again post IVP metoprolol of 5 mg one time order. Received order telephone to restart cardizem drip per protocol. VS stable.
[2020-02-08] MEDS: sodium chloride 0.9% 500 ML IV (17:53)
[2020-02-08] MEDS: venlafaxine 75 mg Tablet 150 MG PO (17:54)
[2020-02-08] MEDS: penicillin v potassium 250 mg Tablet 500 MG PO (17:54)
[2020-02-08] MEDS: pyridostigmine 60 mg Tablet PO ×2 (17:55→20:23)
[2020-02-08] MEDS: dilTIAZem 60 mg Tablet PO (18:00)
[2020-02-08 20:08] LABS: Glucose Point of Care 165 mg/dL (70-110)
--- NOTE | 2020-02-08 21:31 | PC.NURSE ---
Patient is resting in room with eyes open. Patients heart rate was elevated at this beginning of the shift running 140;s-150's and Cardizem gtt was titrated up per protocol and Dr. Long notified. Continued to monitor patient and heart rate is now currently running low 100's, drip titrated back down per protocol. Continue care.
[2020-02-09] VITALS (25 sets, daily range): BP systolic 103–137; BP diastolic 53–92; PULSE 81–160; RESP 16–32; TEMP 36.6–36.8; O2SAT 90–96
[2020-02-09] MEDS: enoxaparin 100 mg/mL Syringe SUBCUT (01:06)
[2020-02-09] MEDS: docusate sodium 100 mg Capsule PO (01:47)
--- NOTE | 2020-02-09 03:41 | PC.NURSE ---
Patient voiced complaints of constipation and nurse notified Doctor Mercedes, who ordered a mineral oil enema. Patient refused enema but did take PRN colace.
--- NOTE | 2020-02-09 03:42 | PC.NURSE ---
Patient's cardizem drip was paused at 0107 due to patients heart rate currently under control and running low 80's to 90's. Dr. Long aware of pausing the drip and oral cardizem is ordered per JUL.
[2020-02-09 04:55] LABS: Basophils % 0.4 %; Eosinophils # 0.1 10^3/uL (0.0-0.8); Eosinophils % 0.9 %; Hematocrit 27.7 % (42.0-52.0); Hemoglobin 7.7 g/dL (11.7-16.6); Lymphocytes # 2.1 10^3/uL (0.8-4.8); Lymphocytes % 18.6 %; Mean Corpuscular HGB Conc 27.8 g/dL (30.0-36.0); Mean Corpuscular Hemoglobin 21.9 pg (28.0-34.0); Mean Corpuscular Volume 78.9 fL (80-94); Mean Platelet Volume 9.3 fL (7.4-10.4); Monocytes % 8.9 %; Neutrophils # 7.76 10^3/uL (1.8-7.7); Neutrophils % 69.8 %; Nucleated Red Blood Cells % 0.2 %; Platelet Count 413 10^3/cmm (130-400); Red Blood Count 3.51 10^6/uL (4.1-5.3); Red Cell Distribution Width 17.7 % (12.1-15.1); White Blood Count 11.1 10^3/uL (4.0-10.0)
[2020-02-09] MEDS: predniSONE 10 mg Tablet 35 MG PO (05:18)
[2020-02-09 05:20] LABS: Anion Gap 15.9 (5-19); Blood Urea Nitrogen 25 mg/dL (8-23); Calcium 9.3 mg/dL (8.5-10.5); Carbon Dioxide 24 mmol/L (22-29); Chloride 102 mmol/L (98-107); Glucose 99 mg/dL (65-115); Osmolality Calculated 290 mOsm/kg (285-295); Potassium 3.9 mmol/L (3.5-5.1); Sodium 138 mmol/L (136-145)
[2020-02-09] MEDS: dilTIAZem 60 mg Tablet PO ×4 (06:01→20:42)
[2020-02-09 06:11] LABS: Glucose Point of Care 124 mg/dL (70-110)
--- NOTE | 2020-02-09 06:20 | PC.NURSE ---
Patient resting in bed with eyes open. Patient is very pleasant with staff and cares. Patient continues to stay off of Cardizem drip and heart rate controlled. When patient does get up and ambulate to bathroom heart rate does elevated to 150's-160's but upon resting heart rate drops back within normal limits mid 90's. Call light is within reach. Continue care.
--- NOTE | 2020-02-09 07:00 | PC.NURSE ---
pt resting in bed upon entering room. assessment performed. pt denies any needs at this time. call light within reach, will continue to monitor.
--- NOTE | 2020-02-09 08:25 | PC.NURSE ---
pt ambulated to rest room. upon getting back in bed heart rate noticed to be 130-140's. pt is off cardizem drip. dr notified. will put in orders to change medication. call light within reach, will continue to monitor.
[2020-02-09 08:36] LABS: T3 Free 2.8 PG/ML (2.0-4.4)
[2020-02-09] MEDS: oxyCODONE-APAP 10-325 mg Tablet 1 TAB PO (08:50)
[2020-02-09] MEDS: venlafaxine 75 mg Tablet 150 MG PO ×2 (08:51→17:45)
[2020-02-09] MEDS: aspirin 81 mg EC Tablet PO (08:51)
[2020-02-09] MEDS: pantoprazole DR 40 mg Tablet PO (08:51)
[2020-02-09] MEDS: penicillin v potassium 250 mg Tablet 500 MG PO ×2 (08:51→17:45)
[2020-02-09] MEDS: pyridostigmine 60 mg Tablet PO ×4 (08:51→21:50)
[2020-02-09] MEDS: levothyroxine 25 mcg Tablet PO (08:51)
--- NOTE | 2020-02-09 09:37 | PC.CHAP ---
Pastoral Care Encounter/Spiritual Assessment Type of Contact [] Declined water well driller visit [] Patient/Family/Request visit [] Outpatient visit [] Follow-up visit [] Physician referral [] Code/Alert [x] Routine visit [] Staff referral [] Actively dying [] Patient sleeping [] Family support [] [] Out of room [] Palliative care [] [] Receiving care in room [] Pre-surgical visit [] Trauma [] Long length of stay [] ICU visit [] Other: Relational/Emotional Strength [] Patient feels connected with others/family/visitors/staff [] Distress [] Loneliness/isolation [] Abandonment Spirituality of Patient [] Person of Yessi [] Attends Taoism of their Yessi [] Believes in Prayer [] Reads Bible or Christian materials [] There are Spiritual issues to be addressed Compliance Representative Interventions [x] Prayer [x] Active listening [x] Non-anxious presence [x] Spiritual/emotional support [] Crisis/trauma care [] Spiritual counseling [] Bereavement support [] Provided bereavement packet [] Provided Bible/devotional materials [] Provided toy/stuffed animal, coloring book to patient or family member [] Provided Communion [] Anointing/[place] [] Salvation [x] Completed spiritual assessment [] Other: Impact on Illness or Injury [] Angry [] Fearful [] Anxious [] Often cries [] Exhaustion [] Unable to work [] Unable to attend adventism [] Unable to walk/stand [] Unable to read [] Unable to drive [] Unable to eat/drink [] Unable to sleep [] Unable to be with family [] Patient intubated [] Other: Summary Patient resting.. patient showing some depression.. says there is too much wrong with him. Time spent with patient 10 min
--- NOTE | 2020-02-09 09:38 | PM.PN ---
Subjective Subjective: Interval history: Patient awake in bed at time of exam today. Reported no chest pain or shortness of breath at this time. Reported continued palpitations. Discussed with him need for continued titration of medications, heart rate was controlled overnight but continues to increase today. He verbalizes understanding and agrees with plan. Patient Vitals/I&O/Wt Last Vital Signs Temp 97.9 F 02/09/20 04:00 Pulse 118 H 02/09/20 08:00 Resp 25 H 02/09/20 08:50 BP 129/67 02/09/20 08:00 Pulse Ox 94 02/09/20 08:00 02/08/20 02/09/20 02/09/20 22:59 06:59 14:59 Intake Total 353.166 / 375.666 111.25 / 486.916 120 / 120 Output Total 400 / 400 Balance 353.166 / 375.666 -288.75 / 86.916 120 / 120 Weight last 48 hrs Weight 110.903 kg Weight 108.862 kg Physical Exam Const: COMMON NORMALS: patient oriented x3 and alert GENERAL APPEARANCE: cooperative ORIENTATION/CONSCIOUSNESS: Yes awake, Yes oriented to person, Yes oriented to place and Yes oriented to time HENMT: COMMON NORMALS: normocephalic and atraumatic HEAD & SCALP: normocephalic and atraumatic Eye: COMMON NORMALS: Equal, round and reactive pupils present PUPIL: Yes Equal, round and reactive pupils present Neck/C-Spine: COMMON NORMALS: supple GENERAL: Yes normal visual inspection Resp: COMMON NORMALS: normal respiratory effort and clear to auscultation bilaterally EFFORT & INSPECTION: Yes able to speak in complete sentences AUSCULTATION: clear to auscultation bilaterally, no rhonchi and no wheezes Cardio: COMMON NORMALS: No murmurs present (Cardio) OTHER: Irregularly irregular, no appreciable murmur GI: COMMON NORMALS: Soft to palpation and non-tender INSPECTION: No abdominal distension AUSCULTATION: Yes normoactive bowel sounds PALPATION: Yes Soft to palpation Extremity: COMMON NORMALS: no clubbing, cyanosis or edema and no calf tenderness Neuro: COMMON NORMALS: patient oriented x3, CN's II-XII intact bilaterally and moves all extremities SENSORIUM/ORIENTATION: Yes alert, Yes oriented to person, Yes oriented to place and Yes oriented to time SPEECH: speech normal Psych: COMMON NORMALS: mental status grossly normal and cooperative Skin: COMMON NORMALS: no rashes or lesions noted GENERAL SKIN EXAM: no rashes or lesions noted Data : 02/09/20 04:01 02/09/20 04:01 A&P Assessment and plan (1) Atrial fibrillation with RVR: Change to inpatient admission due to continued atrial fibrillation with RVR Cardizem drip was shut off overnight the patient received morning dose of Cardizem before dose could be adjusted. Will place on Cardizem plain 60 every 6 hours with plan to increase Cardizem dosing to extended release formulation tomorrow morning. Possible discharge tomorrow morning if heart rate improved We will hold off on any beta-blockers at this time due to myasthenia gravis Status: Acute (2) HTN (hypertension): Hypotension has resolved Continue to hold home lisinopril Status: Acute (3) Myasthenia gravis: Followed by neurology in [place], Dr. Muhammad Currently on plasmapheresis, previously every 2 weeks, now transitioning to q. 4 weeks. Continue on CellCept, continue on prednisone 35 mg/day Continue on Solaris infusions Status: Acute (4) Immunocompromised state: Immunocompromise state due to chronic medications as above Patient appears to be on Bactrim prophylactic dosing along with penicillin Status: Acute (5) Anticoagulant long-term use: On Xarelto currently at home, transition to Lovenox while hospitalized Status: Acute Additional A&P Information Question of infiltrate versus fluid overload on chest x-ray: Patient appeared to be volume depleted yesterday given gentle IV fluids and repeat two-view chest x-ray showed no evidence of any infiltrate Diet: Cardiac, carbohydrate consistent CODE STATUS: Full code DVT prophylaxis: On therapeutic anticoagulation as above Attestations Medical Necessity Statement*: Change to inpatient admission due to continued atrial fibrillation with RVR requiring further medication adjustments Coding Level of Care Code Acute 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
--- NOTE | 2020-02-09 10:00 | PC.NURSE ---
pt heart rate sustaining 160's. dr nava notified and verbal order to restart cardizem. 1010 heart rate still sustaining 160's at rest, titrated per order. 1020 hear rate still sustaining 160's at rest, titrated per order. notified of cardizem being at max dose. would consult cardiology and let pt get an overlap of iv and oral medication.
[2020-02-09 11:21] LABS: Glucose Point of Care 186 mg/dL (70-110)
[2020-02-09] MEDS: morphine 4 mg/mL SDV 1 mL 2 MG IVP ×2 (12:06→21:44)
--- NOTE | 2020-02-09 13:03 | P.CONIM_ITS ---
Providers/Reason For Consult Consulting Physican/Specialty*: Brianda Rodriguez MD/cardiology Reason for Consult*: Patient with atrial fibrillation with rapid ventricular rate Attending Physician: Darling Sharp DO Primary Care Provider: Shabbir Mckenzie Jr, MD History of Present Illness History of Present Illness Blaine Rodriguez is a 69 year old male with a history of chronic atrial fibrillation, on long-term anticoagulation, myasthenia gravis, high blood pressure, dyslipidemia and type 2 diabetes, is admitted to hospital through the emergency room, where he presented with complaints of palpitation for last couple of days. According the patient, he has a history of palpitations off and on. Usually last for few minutes and then goes away by itself. But for the last couple of days, the palpitation was persisting. He did not have associated dizziness or syncopal episode. No significant chest pain. Because of the persistent symptoms, he decided to come to the hospital. He has no history for coronary disease, myocardial infarction or congestive heart failure. He has a history of chronic back pain. His blood sugar has been staying high lately. He also is known to have myasthenia gravis and was started on plasmapheresis recently. He was taken off the lisinopril couple months ago,? For hypotension. His blood pressure has been staying in the normal range. He denies any hematemesis or melena. He had an echocardiogram in November of this year which revealed normal LV size ejection fraction. He had a cardiac catheterization in 2011 and was found to have no blockages. He denies any fever or chills. No cough. No unusual shortness of breath. Review of Systems Narrative: CONSTITUTIONAL: No fever or chills. EYES: No blurring of vision or other visual disturbances lately. ENT: No hoarseness of voice, auditory disturbances or sore throat. CARDIOVASCULAR: As mentioned above. RESPIRATORY: No significant cough. GASTROINTESTINAL: No hematemesis or melena. GENITOURINARY: No dysuria or hematuria. INTEGUMENTARY: No skin rashes or history of skin cancer. NEURO: No transient ischemic attacks or amaurosis. PSYCHIATRIC: No history of psychosis or major depression. HEMATOLOGIC: No bleeding disorders or significant anemia. ENDOCRINE: Patient is known to have type 2 diabetes. His blood sugar has been staying high lately MUSCULOSKELETAL: Patient has been having low back pain immediately. ALLERGY/IMMUNOLOGY: As mentioned above. Meds/Allergies Home Medications and Allergies Home Medications Medication Instructions Recorded Confirmed Last Taken Type aspirin 81 mg tablet,delayed 81 mg PO DAILY 06/25/19 02/08/20 02/08/20 08:00 History release fluticasone propionate 50 1 spray INTRANASAL DAILY 06/25/19 02/08/20 02/07/20 History mcg/actuation nasal spray,suspension hydrocodone 5 mg-acetaminophen 325 1 tab PO QID PRN 06/25/19 02/08/20 02/07/20 History mg tablet lisinopril 20 mg tablet 20 mg PO DAILY 06/25/19 02/08/20 02/07/20 History metformin 1,000 mg tablet 1,000 mg PO BID 06/25/19 02/08/20 02/08/20 07:00 History mycophenolate mofetil 500 mg tablet 1,000 mg PO BID 06/25/19 02/08/20 02/08/20 07:00 History pantoprazole 40 mg tablet,delayed 40 mg PO DAILY 06/25/19 02/08/20 02/08/20 08:00 History release pyridostigmine bromide 60 mg tablet 60 mg PO QID 06/25/19 02/08/20 02/08/20 07:00 History Soliris See Rx Instructions .ROUTE .COMPLEX 11/06/19 02/08/20 11/03/19 History calcium carbonate [Calcium 600] 1,200 mg PO DAILY 11/06/19 02/08/20 02/07/20 History cyclobenzaprine 10 mg PO TID PRN 11/06/19 02/08/20 Unknown History levothyroxine 25 mcg PO DAILY 11/06/19 02/08/20 02/08/20 07:00 History melatonin 10 mg PO BEDTIME 11/06/19 02/08/20 02/07/20 History multivitamin [Multiple Vitamins] 1 tab PO DAILY 11/06/19 02/08/20 02/07/20 History penicillin V potassium 500 mg PO BID 11/06/19 02/08/20 02/08/20 07:00 History prednisone 45 mg PO QAM 11/06/19 02/08/20 02/08/20 08:00 History venlafaxine 150 mg PO BID 11/06/19 02/08/20 02/08/20 08:00 History furosemide 40 mg tablet 40 mg PO DAILY 11/12/19 02/08/20 02/08/20 07:00 History potassium chloride 20 mEq 20 meq PO DAILY #30 tab 11/12/19 02/08/20 02/08/20 08:00 Rx tablet,extended release diltiazem HCl 60 mg tablet 60 mg PO BID #180 tab 12/07/19 02/08/20 02/08/20 08:00 Rx nitroglycerin 0.4 mg sublingual 0.4 mg SUBLINGUAL Q5M PRN #25 tab 12/28/19 02/08/20 Unknown Rx tablet rivaroxaban 20 mg tablet 20 mg PO DAILY 30 Days #30 tab 12/28/19 02/08/20 02/07/20 Rx A-C-E-zinc ox-cupric ox-lutein 1 tab PO TID 02/08/20 02/08/20 02/07/20 History [Ocular Vitamins] docusate sodium 100 mg PO BID PRN 02/08/20 02/08/20 Unknown History Allergies Allergy/AdvReac Type Severity Reaction Status Date / Time atorvastatin [From Lipitor] Allergy NA Verified 12/28/19 10:47 Current Medications Current Medications Generic Name Dose Route Start Last Admin Trade Name Freq PRN Reason Stop Dose Admin Aspirin 81 mg 02/09/20 09:00 02/09/20 08:51 Aspirin Ec PO 81 mg DAILY CORY Administration Diltiazem HCl 60 mg 02/09/20 08:30 02/09/20 08:51 Cardizem PO 60 mg Q6H CORY Administration Docusate Sodium 100 mg 02/08/20 12:54 02/09/20 01:47 Colace PO 100 mg BID PRN Administration Constipation Enoxaparin Sodium 100 mg 02/08/20 13:30 02/09/20 01:06 Lovenox SUBCUT 100 mg Q12H CORY Administration Diltiazem HCl 125 mg/ Sodium 125 mls @ 0 mls/hr 02/08/20 17:15 02/09/20 10:10 Chloride IV 10 mg/hr .Q0M CORY 10 mls/hr Titration Protocol Per Protocol Insulin Aspart 0 unit 02/08/20 18:00 02/09/20 11:59 Novolog SUBCUT 6 unit TIDWM CORY Administration Protocol Insulin Aspart 0 unit 02/08/20 21:00 10/05/20 20:24 Novolog SUBCUT 2 unit BEDTIME CORY Administration Protocol Levothyroxine Sodium 25 mcg 02/09/20 09:00 02/09/20 08:51 Synthroid PO 25 mcg DAILY CORY Administration Morphine Sulfate 2 mg 02/08/20 12:26 02/09/20 12:06 Morphine IVP 2 mg Q4H PRN Administration SEVERE PAIN Mycophenolate Mofetil 1,000 mg 02/08/20 18:00 02/09/20 08:51 Cellcept PO 1,000 mg BID CORY Administration Non-Formulary Medication 10 mg 02/08/20 21:00 02/08/20 19:38 Melatonin PO Not Given BEDTIME CORY Oxycodone/Acetaminophen 1 tab 02/08/20 12:26 02/09/20 08:50 Percocet 10-325 Mg PO 1 tab Q4H PRN Administration SEVERE PAIN Pantoprazole Sodium 40 mg 02/09/20 09:00 02/09/20 08:51 Protonix PO 40 mg DAILY CORY Administration Penicillin V Potassium 500 mg 02/08/20 18:00 02/09/20 08:51 Pen Vk PO 500 mg BID CORY Administration Prednisone 35 mg 02/09/20 06:00 02/09/20 05:18 Prednisone PO 35 mg QAM CORY Administration Pyridostigmine [place] 60 mg 02/08/20 17:00 02/09/20 08:51 Mestinon PO 60 mg QID CORY Administration Venlafaxine HCl 150 mg 02/08/20 18:00 02/09/20 08:51 Effexor PO 150 mg BID CORY Administration PFSH Acute PFSH: Medical History Anticoagulant long-term use Xarelto Arthritis HTN (hypertension) Hx of atrial flutter Hyperlipidemia Hypothyroidism Immunocompromised state Myasthenia gravis Obesity Port-A-Cath in place Surgical History History of abdominal surgery Prior PEG tube placement and subsequent removal History of rhinoplasty History of right knee surgery History of rotator cuff surgery Right Family History Mother Diabetes Myocardial infarction Father Hypertension Myocardial infarction Social History Smoking and tobacco status: never smoked Alcohol intake: never Substance/Drug Use: never Vitals/I&O/Wt Last Vital Signs Temp 97.9 F 02/09/20 04:00 Pulse 111 H 02/09/20 10:54 Resp 21 H 02/09/20 12:06 BP 103/53 02/09/20 10:54 Pulse Ox 94 02/09/20 10:54 02/08/20 02/09/20 02/09/20 22:59 06:59 14:59 Intake Total 353.166 / 375.666 111.25 / 486.916 360.833 / 360.833 Output Total 400 / 400 400 / 400 Balance 353.166 / 375.666 -288.75 / 86.916 -39.167 / -39.167 Weight last 48 hrs Weight 244 lb 8 oz Weight 240 lb Physical Exam Narrative: EXAM NARRATIVE: GENERAL: The patient is alert and oriented times three. Not in any acute distress. Morbidly obese HEENT: No significant pallor, icterus or lymphadenopathy. The pupils are reactant to light. Oral cavity: There are no mucous membrane lesions. Funduscopic examination: The disk margins appear to be sharp with no exudates or hemorrhages. NECK: Trachea appears to be central. No masses noted. No JVD or thyromegaly appreciated. No carotid bruit. RESPIRATORY: Chest is symmetrical. No intercostals muscle retraction or any accessory muscle activation. There is no chest wall tenderness. Breath sounds are heard bilaterally. No rales or rhonchi heard. No evidence of any consolidation. BREASTS: Deferred. HEART: The PMI is in the 5th left intercostals space just inside the midclavicular line. No palpable precordial events. The first heart sound is variable. Second heart sound is normal.. No S3 or S4 heard. No pericardial rub or any click heard. ABDOMEN: No vessel pulsations or distention. No tenderness. No organomegaly appreciated. No abdominal bruit. Bowel sounds are normally heard. : Deferred. RECTAL: Deferred. LYMPHATIC: No lymphadenopathy noted in the neck or groin. EXTREMITIES: No edema or cyanosis. No clubbing. The pulses are symmetrical bilaterally. The radial, femoral, dorsalis pedis and the posterior tibial pulses are palpated and found to be in good volume and amplitude. MUSCULOSKELETAL: No acute joint deformities or swelling SKIN: There are no significant scars or skin rash noted. NEUROPSYCHIATRIC: The patient is alert and oriented x3. Appears to be in a good mood. The higher functions are grossly within normal limits. No tremors or rigidity noted. Data Imaging^: Echo: My impression: Echocardiogram on 11/23/2019 revealed Normal left ventricular size and systolic function, EF 62 %. No regional wall motion abnormalities. Thickened aortic valve. There is no pericardial effusion. There are no intracardiac masses. Technically somewhat difficult study Compared to the previous study from 08/10/2018, there may not be a significant change Corrected copy of the study from 11/06/2019 Cardiac catheterization: My impression: In 2011 revealed Cardiac Arteries and Lesion Findings LMCA: Normal (no stenosis %). LAD: Normal (no stenosis %). LCx: Normal (no stenosis %). RCA: Normal (no stenosis %). A&P Assessment and plan (1) Atrial fibrillation with RVR: The rapid ventricular rate, could be related to the anemia/acute blood loss. The dose of the Cardizem may be increased to 120 mg every 12 hours. Also will consider blood transfusion to keep the hemoglobin above 9. Need to consider work-up of the blood loss. Status: Acute (2) Immunocompromised state: Management as per the primary Status: Acute (3) Hyperlipidemia: May continue on the current medications. Status: Acute Qualifiers: Hyperlipidemia type: mixed hyperlipidemia Qualified Code(s): E78.2 - Mixed hyperlipidemia (4) HTN (hypertension): Currently normotensive. May continue on the current medicines. Status: Acute Qualifiers: Hypertension type: essential hypertension Qualified Code(s): I10 - Essential (primary) hypertension (5) Anemia: Etiology is not clear. Most likely there is an acute blood loss anemia. This needs to be further evaluated. Status: Acute Qualifiers: Anemia type: other cause Other causes of anemia: acute posthemorrhagic Qualified Code(s): D62 - Acute posthemorrhagic anemia Additional A&P Information Based on the patient clinical response, further recommendations will be made. We will go ahead and do an echocardiogram, to evaluate the LV function and rule out any other pathology. Coding Level of Care Code Acute Schedule Planning Manager for [facility] Diagnoses Atrial fibrillation with RVR I48.91 Immunocompromised state D89.9 Hyperlipidemia E78.2 Hyperlipidemia type: mixed hyperlipidemia HTN (hypertension) I10 Hypertension type: essential hypertension Anemia D62 Anemia type: other cause Other causes of anemia: acute posthemorrhagic
--- NOTE | 2020-02-09 13:10 | USCV_ITS ---
Blaine Rodriguez Age: 69 Gender: M : 1950 Exam Date: 02/09/2020 06:50 Ordering Phys: Darling Sharp DO Technologist: Gideon Casarez Exam Location: [facility] [place] Indication: AFIB, CHF BP: 134 / 82 HR: 110 Rhythm: Sinus Technical Quality: Fair MEASUREMENTS (Male / Female) Normal Values 2D ECHO LVOT Diameter 2.0 cm LV Ejection Fraction MOD 2C 63.3 % LV Ejection Fraction 2C AL 62.6 % LA Diameter 4.2 cm LA Width 3.7 cm LA Height 4.7 cm RA Width 4.2 cm RA Height 4.9 cm Aorta at Sinotubular Diameter 1.2 cm M-MODE LV Diastolic Diameter MM 6.8 cm 4.2 - 5.9 / 3.9 - 5.3 cm LV Systolic Diameter MM 4.6 cm LV Ejection Fraction MM Teich 58.6 % IVS Diastolic Thickness MM 1.4 cm 0.6 - 1.0 / 0.6 - 0.9 cm IVS Systolic Thickness MM 2.1 cm LVPW Diastolic Thickness MM 1.3 cm 0.6 - 1.0 / 0.6 - 0.9 cm LVPW Systolic Thickness MM 2.6 cm RV Diastolic Diameter MM 2.0 cm Aortic Annulus Diameter 4.8 cm LA Ao Ratio MM 0.9 MV E Point Septal Separation 1.4 cm DOPPLER AV Peak Velocity 156.0 cm/s LVOT Peak Velocity 126.0 cm/s AV Area Cont Eq vti 2.7 cm squared AV Area Cont Eq pk 2.6 cm squared MV Area PHT 5.0 cm squared Mitral E to A Ratio 0.7 MV E' Velocity 44.0 cm/s Mitral E to MV E' Ratio 9.3 Mitral E to LV E' Lateral Ratio 10.4 Mitral E to LV E' Septal Ratio 8.4 TR Peak Velocity 138.3 cm/s TR Peak Gradient 7.7 mmHg TV Peak E Velocity 99.0 cm/s Right Atrial Pressure 3.0 mmHg Pulmonary Artery Systolic Pressu 10.7 mmHg FINDINGS Left Ventricle Normal left ventricular size and systolic function, EF 64 %. No gross wall motion normalities noted. Because atrial fibrillation with rapid ventricular rate, segmental wall motion analysis is difficult Right Ventricle Normal right ventricular size and systolic function. Right Atrium Mildly increased right atrial size. Left Atrium Mildly increased left atrial size. Mitral Valve No gross abnormalities noted Aortic Valve Thickened aortic valve. Tricuspid Valve No gross abnormalities noted Pulmonic Valve Pulmonic valve not well visualized. Pericardium Normal pericardium without effusion. Aorta Ascending aorta measured 4.2 cm in diameter CONCLUSIONS Normal left ventricular size and systolic function, EF 64 %. No gross wall motion normalities noted. Because atrial fibrillation with rapid ventricular rate, segmental wall motion analysis is difficult. Thickened aortic valve. Mild biatrial enlargement. There is no pericardial effusion. There are no intracardiac masses. Compared to the previous study from November 2019, there may not be a significant change Dr Rafiq Rodriguez MD FACC (Electronically Signed) Final Date: 09 February 2020 14:54 S
[2020-02-09 16:56] LABS: Glucose Point of Care 155 mg/dL (70-110)
[2020-02-09] MEDS: sodium chloride 0.9% (100 ml) 100 ML ×2 (17:46→23:51)
--- NOTE | 2020-02-09 18:00 | PC.NURSE ---
heart rate in the 80's, cardizem titrated per protocol until being able to shut off.
--- NOTE | 2020-02-09 18:31 | PC.NURSE ---
blood obtained from blood bank. vitals taken, blood started and patient monitored. pt educated on transfusion reactions and to notify staff of any. will continue to monitor.
[2020-02-09 21:24] LABS: Glucose Point of Care 150 mg/dL (70-110)
[2020-02-10] VITALS (12 sets, daily range): BP systolic 104–146; BP diastolic 71–87; PULSE 80–116; RESP 17–25; TEMP 36.4–36.7; O2SAT 91–96
[2020-02-10] MEDS: dilTIAZem 60 mg Tablet PO ×2 (01:27→08:23)
--- NOTE | 2020-02-10 01:50 | PC.NURSE ---
Blood obtained from lab and initiated at 2342. V/S are stable. Continuing to infuse, patient tolerating well.
--- NOTE | 2020-02-10 02:32 | PC.NURSE ---
1st Unit of blood transfuse end time was 2111; 2nd unit of blood ended at 221. V/S are stable, patient denies any s/s of itchiness, pain, or SOB. Call light is within reach. Continue care.
[2020-02-10] MEDS: morphine 4 mg/mL SDV 1 mL 2 MG IVP ×2 (03:48→08:20)
[2020-02-10] MEDS: predniSONE 10 mg Tablet 35 MG PO (05:10)
[2020-02-10 05:19] LABS: Basophils # 0.1 10^3/uL (0.0-0.1); Basophils % 0.4 %; Eosinophils # 0.2 10^3/uL (0.0-0.8); Eosinophils % 1.7 %; Hematocrit 34.1 % (42.0-52.0); Lymphocytes % 18.3 %; Mean Corpuscular HGB Conc 29.3 g/dL (30.0-36.0); Mean Corpuscular Hemoglobin 23.5 pg (28.0-34.0); Mean Corpuscular Volume 80.2 fL (80-94); Monocytes # 0.9 10^3/uL (0.2-0.9); Monocytes % 8.2 %; Neutrophils # 7.82 10^3/uL (1.8-7.7); Neutrophils % 70.4 %; Nucleated Red Blood Cells # 0.1 /100WBC; Nucleated Red Blood Cells % 0.4 %; Platelet Count 336 10^3/cmm (130-400); Red Blood Count 4.25 10^6/uL (4.1-5.3); Red Cell Distribution Width 17.1 % (12.1-15.1); White Blood Count 11.1 10^3/uL (4.0-10.0)
[2020-02-10 05:51] LABS: Anion Gap 16.6 (5-19); Blood Urea Nitrogen 23 mg/dL (8-23); Calcium 9.2 mg/dL (8.5-10.5); Carbon Dioxide 22 mmol/L (22-29); Chloride 104 mmol/L (98-107); Glucose 124 mg/dL (65-115); Osmolality Calculated 293 mOsm/kg (285-295); Potassium 3.6 mmol/L (3.5-5.1); Sodium 139 mmol/L (136-145)
[2020-02-10 06:08] LABS: Glucose Point of Care 120 mg/dL (70-110)
[2020-02-10] MEDS: pyridostigmine 60 mg Tablet PO ×2 (08:23→13:29)
[2020-02-10] MEDS: pantoprazole DR 40 mg Tablet PO (08:23)
[2020-02-10] MEDS: levothyroxine 25 mcg Tablet PO (08:23)
[2020-02-10] MEDS: venlafaxine 75 mg Tablet 150 MG PO (08:23)
[2020-02-10] MEDS: aspirin 81 mg EC Tablet PO (08:23)
--- NOTE | 2020-02-10 09:01 | PM.PN ---
Subjective Subjective: Interval history: Patient denies any chest pain. He still has occasional palpitation. He received a total of 2 units of packed RBCs. His hemoglobin has improved to 10. He denies any fever or chills. No cough. Telemetry shows atrial fibrillation with intermittent rapid ventricular rate. Patient had echocardiogram yesterday which revealed normal LV size and ejection fraction. No significant valvular lesions. Medications: Reviewed: Yes Medication Review Details: Current Medications Acetaminophen (Tylenol) 650 mg PO Q6H PRN PRN Reason: Mild/Mod Pain Or Temp >/= 101 Aspirin (Aspirin Ec) 81 mg PO DAILY [facility] Last Admin: 02/10/20 08:23 Dose: 81 mg Documented by: Cyclobenzaprine HCl (Flexeril) 10 mg PO TID PRN PRN Reason: MUSCLE SPASM Dextrose (D50w) 25 ml IVP ONCE PRN; Protocol PRN Reason: hypoglycemia protocol Dextrose (D50w) 50 ml IVP PRN PRN; Protocol PRN Reason: hypoglycemia protocol Diltiazem HCl (Cardizem) 60 mg PO Q6H [facility] Last Admin: 02/10/20 08:23 Dose: 60 mg Documented by: Docusate Sodium (Colace) 100 mg PO BID PRN PRN Reason: Constipation Last Admin: 02/09/20 01:47 Dose: 100 mg Documented by: Enoxaparin Sodium (Lovenox) 100 mg SUBCUT Q12H [facility] Last Admin: 02/09/20 01:06 Dose: 100 mg Documented by: Glucagon (Glucagen) 1 mg IM ONCE PRN; Protocol PRN Reason: Adult Acute Hypoglycemia Prot. Dextrose (D5w) 500 mls @ 100 mls/hr IV ONCE PRN; Protocol PRN Reason: Adult Acute Hypoglycemia Prot Diltiazem HCl 125 mg/ Sodium (Chloride) 125 mls @ 0 mls/hr IV .Q0M C[facility]; Protocol Last Titration: 02/09/20 18:15 Dose: 0 mg/hr, 0 mls/hr Documented by: Insulin Aspart (Novolog) 0 unit SUBCUT TIDWM [facility]ORY; Protocol Last Admin: 02/10/20 08:19 Dose: Not Given Documented by: Insulin Aspart (Novolog) 0 unit SUBCUT BEDTIME [facility]; Protocol Last Admin: 02/09/20 21:44 Dose: 2 unit Documented by: Levothyroxine Sodium (Synthroid) 25 mcg PO DAILY [facility] Last Admin: 02/10/20 08:23 Dose: 25 mcg Documented by: Morphine Sulfate (Morphine) 2 mg IVP Q4H PRN PRN Reason: SEVERE PAIN Last Admin: 02/10/20 08:20 Dose: 2 mg Documented by: Mycophenolate Mofetil (Cellcept) 1,000 mg PO BID [facility] Last Admin: 02/10/20 08:22 Dose: 1,000 mg Documented by: Naloxone HCl (Narcan) 0.1 mg IVP Q2M PRN PRN Reason: OPIATERV Nitroglycerin (Nitrostat) 0.4 mg SUBLINGUAL Q5M PRN PRN Reason: Chest Pain Non-Formulary Medication (Melatonin) 10 mg PO BEDTIME [facility] Last Admin: 02/09/20 20:33 Dose: Not Given Documented by: Ondansetron HCl (Zofran) 4 mg IVP Q8H PRN PRN Reason: vomiting, or N/V if npo Oxycodone/Acetaminophen (Percocet 10-325 Mg) 1 tab PO Q4H PRN PRN Reason: SEVERE PAIN Last Admin: 02/09/20 08:50 Dose: 1 tab Documented by: Pantoprazole Sodium (Protonix) 40 mg PO DAILY [facility] Last Admin: 02/10/20 08:23 Dose: 40 mg Documented by: Penicillin V Potassium (Pen Vk) 500 mg PO BID [facility] Last Admin: 02/09/20 17:45 Dose: 500 mg Documented by: Prednisone (Prednisone) 35 mg PO QAM [facility] Last Admin: 02/10/20 05:10 Dose: 35 mg Documented by: Pyridostigmine Ballinger (Mestinon) 60 mg PO QID [facility] Last Admin: 02/10/20 08:23 Dose: 60 mg Documented by: Venlafaxine HCl (Effexor) 150 mg PO BID [facility] Last Admin: 02/10/20 08:23 Dose: 150 mg Documented by: Vitals/I&O/Wt Last Vital Signs Temp 97.6 F 02/10/20 08:00 Pulse 116 H 02/10/20 08:00 Resp 20 H 02/10/20 08:20 BP 146/77 02/10/20 08:00 Pulse Ox 95 02/10/20 08:20 02/09/20 02/10/20 02/10/20 22:59 06:59 14:59 Intake Total 537.75 / 958.334 250 / 1208.334 240 / 240 Balance 537.75 / 558.334 250 / 808.334 240 / 240 Weight last 48 hrs Weight 244 lb 8 oz Weight 240 lb Physical Exam Narrative: EXAM NARRATIVE: GENERAL: The patient is alert and oriented times three. Not in any acute distress. Morbidly obese HEENT: No significant pallor, icterus or lymphadenopathy. There are no mucous membrane lesions. NECK: Trachea appears to be central. No masses noted. No JVD or thyromegaly appreciated. No carotid bruit. RESPIRATORY: Chest is symmetrical. No intercostals muscle retraction or any accessory muscle activation. There is no chest wall tenderness. Breath sounds are heard bilaterally. No rales or rhonchi heard. No evidence of any consolidation. BREASTS: Deferred. HEART: PMI is not palpated. no palpable precordial events. The first heart sound is variable. Second heart sound is normal.. No S3 or S4 heard. No pericardial rub or any click heard. ABDOMEN: No vessel pulsations or distention. No tenderness. No organomegaly appreciated. No abdominal bruit. Bowel sounds are normally heard. : Deferred. RECTAL: Deferred. LYMPHATIC: No lymphadenopathy noted in the neck or groin. EXTREMITIES: No edema or cyanosis. No clubbing. The peripheral pulses are palpable in fairly good volume and amplitude MUSCULOSKELETAL: No acute joint deformities or swelling SKIN: There are no significant scars or skin rash noted. NEUROPSYCHIATRIC: The patient is alert and oriented x3. Appears to be in a good mood. The higher functions are grossly within normal limits. No tremors or rigidity noted. Data : 02/10/20 04:33 02/10/20 04:33 Micro: Microbiology 02/08/20 03:38 Occult Blood (FIT) - Final Stool - Stool Aspirate echocardiogram from 02/09/2020 Normal left ventricular size and systolic function, EF 64 %. No gross wall motion normalities noted. Because atrial fibrillation with rapid ventricular rate, segmental wall motion analysis is difficult. Thickened aortic valve. Mild biatrial enlargement. There is no pericardial effusion. There are no intracardiac masses. Compared to the previous study from November 2019, there may not be a significant change A&P Assessment and plan (1) Atrial fibrillation with RVR: The heart rate seems to be improving with a blood transfusion. I may change the short-acting Cardizem to long-acting form. Diltiazem XR 120 mg p.o. twice daily. Continue other medications as it is. Status: Acute (2) Immunocompromised state: Management as per the primary Status: Acute (3) Hyperlipidemia: May continue on the current medications. Status: Acute Qualifiers: Hyperlipidemia type: mixed hyperlipidemia Qualified Code(s): E78.2 - Mixed hyperlipidemia (4) HTN (hypertension): Currently the blood pressure is a stage II. Status: Acute Qualifiers: Hypertension type: essential hypertension Qualified Code(s): I10 - Essential (primary) hypertension (5) Anemia: Etiology is not clear. Most likely there is an acute blood loss anemia. This needs to be further evaluated. Status: Acute Qualifiers: Anemia type: other cause Other causes of anemia: acute posthemorrhagic Qualified Code(s): D62 - Acute posthemorrhagic anemia Additional A&P Information Based on the clinical response, further management decisions will be made. Consider anemia work-up Coding Level of Care Code Acute Drafter Directional Survey for [facility] Fwd Diagnoses Atrial fibrillation with RVR I48.91 Immunocompromised state D89.9 Hyperlipidemia E78.2 Hyperlipidemia type: mixed hyperlipidemia HTN (hypertension) I10 Hypertension type: essential hypertension Anemia D62 Anemia type: other cause Other causes of anemia: acute posthemorrhagic
[2020-02-10 10:58] LABS: Glucose Point of Care 191 mg/dL (70-110)
[2020-02-10 11:29] LABS: Iron 174 ug/dL (59-158); Percent Saturation 47.1 % (20-50); Total Iron Binding Capacity 369 mcg/dl; Unsaturated Iron Binding 195 ug/dL (112-347)
[2020-02-10] MEDS: dilTIAZem ER (12HR) 60 mg Capsule 120 MG PO (11:29)
[2020-02-10] MEDS: metoprolol tartrate 25 mg Tablet PO (11:29)
[2020-02-10] MEDS: oxyCODONE-APAP 10-325 mg Tablet 1 TAB PO (11:34)
[2020-02-10] MEDS: penicillin v potassium 250 mg Tablet 500 MG PO (11:38)
--- NOTE | 2020-02-10 11:54 | XR_ITS ---
WS: [id number] XR lumbar spine 2-3V* 51207 REASON FOR EXAM: lumbar back pain FINDINGS: Overall there is decreased bone density. There are biconcave and wedge-shaped compression deformities T12-L1. Intervertebral disc space narrowing L1-L2 and L2-L3. Degenerative changes in the facets L3-S1. The patient has a narrow lumbar spinal canal. XR/XR lumbar spine 2-3V* 58880 IMPRESSION: Multiple compression deformities of unknown chronicity. The T12, L2, L3, and L4 vertebral bodies could be involved by acute or subacute compression fracture. This would be on the basis of abnormal underlying bone. Bone density appears si gnificantly decreased for a male of this age. Multiple myeloma can present in t his fashion. The most useful additional spine imaging would be MRI. Narrow lumbar spinal canal.
--- NOTE | 2020-02-10 14:04 | PC.CHAP ---
Pastoral Care Encounter/Spiritual Assessment Type of Contact [] Declined senior compliance officer visit [] Patient/Family/Request visit [] Outpatient visit [] Follow-up visit [] Physician referral [] Code/Alert [X] Routine visit [] Staff referral [] Actively dying [] Patient sleeping [] Family support [] [] Out of room [] Palliative care [] [] Receiving care in room [] Pre-surgical visit [] Trauma [] Long length of stay [] ICU visit [] Other: Relational/Emotional Strength [] Patient feels connected with others/family/visitors/staff [] Distress [] Loneliness/isolation [] Abandonment Spirituality of Patient [] Person of Yessi [] Attends Uatsdin of their Yessi [] Believes in Prayer [] Reads Bible or Mu-Ism materials [] There are Spiritual issues to be addressed Stone Product Fabricator Interventions [] Prayer [] Active listening [] Non-anxious presence [] Spiritual/emotional support [] Crisis/trauma care [] Spiritual counseling [] Bereavement support [] Provided bereavement packet [] Provided Bible/devotional materials [] Provided toy/stuffed animal, coloring book to patient or family member [] Provided Communion [] Anointing/[place] [] Salvation [] Completed spiritual assessment [] Other: Impact on Illness or Injury [] Angry [] Fearful [] Anxious [] Often cries [] Exhaustion [] Unable to work [] Unable to attend oriental orthodox [] Unable to walk/stand [] Unable to read [] Unable to drive [] Unable to eat/drink [] Unable to sleep [] Unable to be with family [] Patient intubated [] Other: Summary Time spent with patient
--- NOTE | 2020-02-10 14:45 | PC.NURSE ---
Heart rate During exertion, marching in place, pt HR is in 150s to 160s for 2-3 seconds, nonsustained. HR at rest is in upper 90s-100s post metoprolol and Cardizem oral as ordered. notified.
--- NOTE | 2020-02-10 15:00 | PC.NURSE ---
Pt up to bathroom Pt denies any chest discomfort, dizziness or lightheadedness after walking to bathroom. HR in upper 80s to 100s. at bedside.
--- NOTE | 2020-02-10 15:13 | P.DS_ITS ---
Discharge Providers Date of Admission: 02/09/20 09:45 Date of Discharge: February 10, 2020 Attending Provider at Admission: Darling Sharp DO Attending Provider at Discharge: Darling Sharp DO Primary Care Provider: Shabbir Mckenzie Jr, MD Diagnoses at Discharge Discharge Diagnosis (1) Atrial fibrillation with RVR: Status: Acute (2) Immunocompromised state: Status: Acute (3) Hyperlipidemia: Status: Acute Qualifiers: Hyperlipidemia type: mixed hyperlipidemia Qualified Code(s): E78.2 - Mixed hyperlipidemia (4) HTN (hypertension): Status: Acute Qualifiers: Hypertension type: essential hypertension Qualified Code(s): I10 - Essential (primary) hypertension (5) Anemia: Status: Acute Qualifiers: Anemia type: other cause Other causes of anemia: acute posthemorrhagic Qualified Code(s): D62 - Acute posthemorrhagic anemia Reason for Visit Reason for Visit: ELEVATED HR, LOW BP, LOW BACK PAIN Hospital Course Hospital Course: Was seen and evaluated in the emergency department noted to have atrial fibrillation with RVR and admitted for further evaluation and treatment. Initially started on a Cardizem drip and had improvement of heart rate. Has known history of atrial fibrillation which is difficult to control secondary to his myasthenia gravis. Patient was then transition to oral Cardizem but continued to have fluctuation in heart rate. Cardiology was ultimately consulted. Patient was noted to have anemia on hospital day #2 and transfused 1 unit of packed red blood cells. Hemoglobin then stabilized to 10, patient has chronic anemia, no evidence of any active bleeding. Discussed with patient on hospital day #3 and he reported that he has to be to [place] tomorrow for Solaris injection for his myasthenia gravis. He was transitioned to Cardizem 120 mg twice daily, this is an increase from his previous dose and also started on metoprolol 25 mg twice daily. Heart rate continued to be well controlled at rest, with exertion he did have intermittent increase in heart rate but he was asymptomatic and immediately upon rest his heart rate would improve. Discussed this with patient in detail at time of discharge and he reported that this is his baseline due to his myasthenia gravis and he had no concerns on date of discharge, reported that he felt comfortable discharging to home as he really needed to get to his appointment tomorrow. Discussed with patient in detail if he had any concern for chest pain, shortness of breath, palpitations, lightheadedness or dizziness that he is to present to the ED, he verbalized understanding and agreed with plan. Discussed with patient the recommendation to have close outpatient cardiology follow-up as well as follow- up with neurology, he agreed with plan. Physical Exam Const: COMMON NORMALS: patient oriented x3 and alert GENERAL APPEARANCE: cooperative ORIENTATION/CONSCIOUSNESS: Yes awake, Yes oriented to person, Yes oriented to place and Yes oriented to time HENMT: COMMON NORMALS: normocephalic and atraumatic HEAD & SCALP: normocephalic and atraumatic Eye: COMMON NORMALS: Equal, round and reactive pupils present PUPIL: Yes Equal, round and reactive pupils present Neck/C-Spine: COMMON NORMALS: supple GENERAL: Yes normal visual inspection Resp: COMMON NORMALS: normal respiratory effort and clear to auscultation bilaterally EFFORT & INSPECTION: Yes able to speak in complete sentences AUSCULTATION: clear to auscultation bilaterally, no rhonchi and no wheezes Cardio: COMMON NORMALS: No murmurs present (Cardio) OTHER: Irregularly irregular, no appreciable murmur GI: COMMON NORMALS: Soft to palpation and non-tender INSPECTION: No abdominal distension AUSCULTATION: Yes normoactive bowel sounds PALPATION: Yes Soft to palpation Extremity: COMMON NORMALS: no clubbing, cyanosis or edema and no calf tenderness Neuro: COMMON NORMALS: patient oriented x3, CN's II-XII intact bilaterally and moves all extremities SENSORIUM/ORIENTATION: Yes alert, Yes oriented to p erson, Yes oriented to place and Yes oriented to time SPEECH: speech normal Psych: COMMON NORMALS: mental status grossly normal and cooperative Skin: COMMON NORMALS: no rashes or lesions noted GENERAL SKIN EXAM: no rashes or lesions noted Discharge Data Data Completed and Pending: Completed Studies During Hospitalization Category Date Time Status XR chest 1V lucero ble 18625 Stat Exams 02/08/20 10:46 Completed XR chest 2V* 7104 6 Routine Exams 02/08/20 13:20 Completed XR lumbar spine 2 -3V* 41278 Routine Exams 02/10/20 11:54 Completed CV echo complete* [id number] Routine Ultrasound 02/09/20 13:10 Completed Pending at discharge Category Date Time Status Basic Metabolic P [place] AM LABS Lab 02/11/20 04:00 Ordered Complete Blood Co unt w/Auto AM LABS Lab 02/11/20 04:00 Ordered Labs from last 24 hours 02/10/20 02/10/20 02/10/20 10:46 06:00 04:33 WBC RBC Hgb Hct MCV MCH MCHC RDW Plt Count MPV Neut % (Auto) Lymph % (Auto) [place] % (Auto) Eos % (Auto) Baso % (Auto) Neut # (Auto) Lymph # (Auto) [place] # (Auto) Eos # (Auto) Baso # (Auto) Nucleated RBC % (a uto) Nucleated RBCs # Sodium Potassium Chloride Carbon Dioxide Anion Gap BUN Creatinine GFR Calculation Glucose POC Glucose 191 120 Calculated Osmolal ity Calcium Iron 174 H TIBC 369 % Saturation 47.1 Unsat Iron Binding 195 Blood Type Rho(D) Type Antibody Screen Crossmatch 02/10/20 02/10/20 02/09/20 04:33 04:33 20:48 WBC 11.1 H RBC 4.25 Hgb 10.0 L Hct 34.1 L MCV 80.2 MCH 23.5 L MCHC 29.3 L RDW 17.1 H Plt Count 336 MPV 9.0 Neut % (Auto) 70.4 Lymph % (Auto) 18.3 [place] % (Auto) 8.2 Eos % (Auto) 1.7 Baso % (Auto) 0.4 Neut # (Auto) 7.82 H Lymph # (Auto) 2.0 [place] # (Auto) 0.9 Eos # (Auto) 0.2 Baso # (Auto) 0.1 Nucleated RBC % (a uto) 0.4 Nucleated RBCs # 0.1 Sodium 139 Potassium 3.6 Chloride 104 Carbon Dioxide 22 Anion Gap 16.6 BUN 23 Creatinine 0.6 L GFR Calculation 134.0 H Glucose 124 H POC Glucose 150 Calculated Osmolal ity 293 Calcium 9.2 Iron TIBC % Saturation Unsat Iron Binding Blood Type Rho(D) Type Antibody Screen Crossmatch 02/09/20 02/09/20 16:47 16:10 WBC RBC Hgb Hct MCV MCH MCHC RDW Plt Count MPV Neut % (Auto) Lymph % (Auto) [place] % (Auto) Eos % (Auto) Baso % (Auto) Neut # (Auto) Lymph # (Auto) [place] # (Auto) Eos # (Auto) Baso # (Auto) Nucleated RBC % (a uto) Nucleated RBCs # Sodium Potassium Chloride Carbon Dioxide Anion Gap BUN Creatinine GFR Calculation Glucose POC Glucose 155 Calculated Osmolal ity Calcium Iron TIBC % Saturation Unsat Iron Binding Blood Type O Positive Rho(D) Type Positive Antibody Screen Negative Crossmatch See Detail Vitals: Last Vital Signs Temp 97.7 F 02/10/20 11:03 Pulse 111 H 02/10/20 11:03 Resp 22 H 02/10/20 11:34 BP 131/79 02/10/20 11:03 Pulse Ox 95 02/10/20 11:34 Discharge Plan Discharge Patient Disposition: Home Condition: Stable Prescriptions: New oxycodone-acetaminophen 10-325 mg Tablet 1 tab PO Q4H PRN (Reason: Severe Pain) 5 Days Qty: 20 RF: 0 metoprolol tartrate 25 mg Tablet 25 mg PO BID 30 Days Qty: 60 RF: 0 Continued pantoprazole 40 mg tablet,delayed release (DR/EC) 40 mg PO DAILY RF: 0 pyridostigmine bromide 60 mg tablet 60 mg PO QID RF: 0 hydrocodone-acetaminophen 5-325 mg tablet 1 tab PO QID PRN (Reason: Pain) RF: 0 aspirin [Adult Low Dose Aspirin] 81 mg tablet,delayed release (DR/EC) 81 mg PO DAILY RF: 0 fluticasone propionate [Allergy Relief (fluticasone)] 50 mcg/actuation spray,suspension 1 spray INTRANASAL DAILY RF: 0 lisinopril 20 mg tablet 20 mg PO DAILY RF: 0 metformin 1,000 mg tablet 1,000 mg PO BID RF: 0 mycophenolate mofetil [CellCept] 500 mg tablet 1,000 mg PO BID RF: 0 nitroglycerin [Nitrostat] 0.4 mg tablet, sublingual 0.4 mg SUBLINGUAL Q5M PRN (Reason: Chest Pain) Qty: 25 RF: 3 Xarelto 20 mg tablet 20 mg PO DAILY 30 Days Qty: 30 RF: 5 docusate sodium 100 mg Capsule 100 mg PO BID PRN (Reason: Constipation) RF: 0 Ocular Vitamins 7,160 unit- 113 mg-0.5 mg Tablet 1 tab PO TID RF: 0 multivitamin [Multiple Vitamins] Tablet 1 tab PO DAILY RF: 0 cyclobenzaprine 10 mg Tablet 10 mg PO TID PRN (Reason: unknown) RF: 0 venlafaxine 75 mg tablet 150 mg PO BID RF: 0 prednisone 5 mg Tablet 45 mg PO QAM RF: 0 penicillin V potassium 500 mg tablet 500 mg PO BID RF: 0 levothyroxine 25 mcg Tablet 25 mcg PO DAILY RF: 0 calcium carbonate [Calcium 600] 600 mg calcium (1,500 mg) Tablet 1,200 mg PO DAILY RF: 0 melatonin 10 mg Tablet 10 mg PO BEDTIME RF: 0 Soliris See Rx Instructions .ROUTE .COMPLEX RF: 0 Changed diltiazem HCl 60 mg tablet 120 mg PO BID 30 Days Qty: 180 RF: 3 Held furosemide 40 mg tablet 40 mg PO DAILY RF: 0 Hold Instructions: Resume on 02/17/20. potassium chloride 20 mEq tablet extended release 20 meq PO DAILY Qty: 30 RF: 4 Hold Instructions: Resume on 02/17/20. Discharge Orders: Discharge Order (Routine); Ordered 02/10/20 Ordered By: Darling Sharp Referrals: Ngoc Tidwell MD [Physician] - 1 week Levi [place] M.D [Physician] - 2 weeks Shabbir Mckenzie Jr, MD [Primary Care Provider] - 4-7 days Discharge Diet: Advance as tolerated Discharge Activity: Increase activity as tolerated Activity Restrictions/Additional Instructions: Increase Cardizem to 120 mg twice daily Started on metoprolol tartrate 25 mg twice daily Follow-up with neurology for Solaris injection tomorrow as scheduled Follow-up with primary care provider in 2 to 3 days, Dr. Mckenzie Follow-up with neurology as scheduled for regular office visit Follow-up with cardiology in 1 to 2 weeks Call your physician or present to the ED for any acute illness or concern. As discussed if you begin having any worsening chest pain, shortness of breath, lightheadedness or dizziness please present to the ED. Hold on Lasix until follow-up with your primary care provider. 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
[2020-02-10 17:02] LABS: Glucose Point of Care 116 mg/dL (70-110)
--- NOTE | 2020-02-10 17:58 | PC.NURSE ---
Discharge to home w/caregiver Instructed pt to follow-up with his pcp, cadiologist and neurologist as discussed. Provided pt on new meds actions, dosing, timing, possible s/e. Informed pt on the dose change of his Cardizem as ordered and the hold meds until he sees his pcp as ordered. Educated pt on fall prevention. He mentioned of getting a wheelchair in the future. Reinforced to pt that he will need to talk to his pcp. Pt verbalizes understanding. Instructed pt to call his pcp or come to [facility] if he has any worsening of symptoms. Pt was asked if there is any more concerns or questions on his discharge instructions. Pt voices no concerns and voices understanding w/ instructions and medications. Ushered pt via wheelchair.
== END 2020-02-10 17:58 | disposition home or self-care (01) | DRG 309 ==
LOC: ER 09:48 → CSU 12:00
PROVIDERS: Family Medicine; Admitting Provider Family Medicine; PCP Family Medicine; Visit Provider Family Medicine
DX: I48.91 Unspecified atrial fibrillation (principal); D84.821 Immunodeficiency due to drugs; G70.00 Myasthenia gravis without (acute) exacerbation; E03.9 Hypothyroidism, unspecified; E11.9 Type 2 diabetes mellitus without complications; E78.2 Mixed hyperlipidemia; Z79.899 Other long term (current) drug therapy; Z79.01 Long term (current) use of anticoagulants; M19.90 Unspecified osteoarthritis, unspecified site; I10 Essential (primary) hypertension; T38.0X5A Adverse effect of glucocorticoids and synthetic analogues, initial encounter; Z79.2 Long term (current) use of antibiotics; Z79.52 Long term (current) use of systemic steroids; Z79.84 Long term (current) use of oral hypoglycemic drugs; Z79.82 Long term (current) use of aspirin; E66.9 Obesity, unspecified; Z68.35 Body mass index [BMI] 35.0-35.9, adult; Z95.828 Presence of other vascular implants and grafts; G89.29 Other chronic pain; M54.9 Dorsalgia, unspecified; D64.9 Anemia, unspecified
CPT/HCPCS: 12345; 36415; 36416; 36430; 71045; 71046; 72100; 80048; 80053; 81001; 82274; 82962; 83540; 83550; 83735; 83880; 84100; 84443; 84481; 84484; 85025; 85610; 86850; 86900; 86920; 93005; 93306; 96372; 96375; 99283; G0378; J1650; J1815; J2270; J3490; J7040; J7512; J7517; P9040

== ENCOUNTER → 2021-08-21 13:46 | Outpatient (BNVA) | payer MEDICARE, SELFPAY | PROVIDERS: PCP Nurse Practitioner; Visit Provider Internal Medicine | DX: I10 Essential (primary) hypertension (principal); I48.92 Unspecified atrial flutter; Z79.01 Long term (current) use of anticoagulants; E78.2 Mixed hyperlipidemia; D62 Acute posthemorrhagic anemia; G70.00 Myasthenia gravis without (acute) exacerbation; E66.9 Obesity, unspecified | CPT/HCPCS: 99213 ==

== ENCOUNTER → 2022-02-19 13:42 | Outpatient (BNVA) | payer MEDICARE, SELFPAY | PROVIDERS: PCP Nurse Practitioner Family; Visit Provider Internal Medicine | DX: I48.92 Unspecified atrial flutter (principal); Z79.01 Long term (current) use of anticoagulants; E78.2 Mixed hyperlipidemia; I10 Essential (primary) hypertension; D62 Acute posthemorrhagic anemia; G70.00 Myasthenia gravis without (acute) exacerbation; E66.9 Obesity, unspecified; R06.00 Dyspnea, unspecified | CPT/HCPCS: 99213; 99214 ==

== ENCOUNTER 2022-04-09 14:44 | Outpatient (CLI) | payer MEDICARE, SELFPAY ==
--- NOTE | 2022-04-09 15:15 | USCV_ITS ---
Blaine Rodriguez Age: 72 Gender: M : 1950 Exam Date: 04/09/2022 15:18 Ordering Phys: Levi Covington M.D ([email or web address]) Technologist: Exam Location: [facility] – [place] Indication: pre op afib BP: 124 / 75 HR: 79 Rhythm: Sinus Technical Quality: Adequate MEASUREMENTS (Male / Female) Normal Values 2D ECHO LV Diastolic Diameter PLAX 5.1 cm 4.2 - 5.9 / 3.9 - 5.3 cm LV Systolic Diameter PLAX 3.6 cm IVS Diastolic Thickness 1.0 cm 0.6 - 1.0 / 0.6 - 0.9 cm IVS Systolic Thickness 1.6 cm LVPW Diastolic Thickness 1.5 cm 0.6 - 1.0 / 0.6 - 0.9 cm LVPW Systolic Thickness 2.0 cm LVOT Diameter 2.1 cm LV Ejection Fraction 2D Teich 58.0 % LV Ejection Fraction MOD 2C 69.2 % LV Ejection Fraction 2C AL 70.0 % LA Diameter 4.2 cm M-MODE Aortic Annulus Diameter 4.4 cm LA Ao Ratio MM 0.9 MV E Point Septal Separation 0.7 cm DOPPLER AV Peak Velocity 286.0 cm/s LVOT Peak Velocity 73.0 cm/s AV Area Cont Eq vti 1.3 cm squared AV Area Cont Eq pk 0.9 cm squared MV Area PHT 5.0 cm squared Mitral E to A Ratio 2.1 MV E' Velocity 62.0 cm/s Mitral E to MV E' Ratio 7.8 Mitral E to LV E' Lateral Ratio 7.8 Mitral E to LV E' Septal Ratio 7.8 TR Peak Velocity 206.3 cm/s TR Peak Gradient 17.0 mmHg TV Peak E Velocity 79.0 cm/s Right Atrial Pressure 3.0 mmHg Pulmonary Artery Systolic Pressu 20.0 mmHg RV Acceleration Time 0.1 s FINDINGS Left Ventricle Left ventricle is normal in size. LV systolic function is normal with EF 55 to 60%. No regional wall motion abnormalities are seen Right Ventricle Normal in size and function Right Atrium Not well-visualized Left Atrium Normal in size Mitral Valve Structurally normal mitral valve. No significant stenosis or regurgitation seen. Aortic Valve Aortic valve is thickened. Mild aortic stenosis with aortic valve area of 1.26 cm squared with mean gradient of 12 mmHg. Tricuspid Valve Trace tricuspid regurgitation. Insufficient TR jet to calculate RVSP Pulmonic Valve Not well-visualized Pericardium Normal Aorta Mildly dilated IVC Not well visualized CONCLUSIONS LV systolic function is normal with EF 55 to 60%. Mild aortic stenosis with aortic valve area of 1.26 cm squared with mean gradient of 12 mmHg Trace tricuspid regurgitation Mildly dilated ascending aorta Compared to prior echocardiogram from 2019, patient now has mild aortic stenosis Levi Covington MD (Electronically Signed) Final Date: 12 April 2022 10:23 S
== END 2022-04-09 14:45 | disposition home or self-care (01) ==
LOC: RAD 14:46
PROVIDERS: PCP Nurse Practitioner Family; Visit Provider Internal Medicine
DX: R06.02 Shortness of breath (principal); Z01.810 Encounter for preprocedural cardiovascular examination; I48.91 Unspecified atrial fibrillation; I35.0 Nonrheumatic aortic (valve) stenosis; I07.1 Rheumatic tricuspid insufficiency
CPT/HCPCS: 93306

== ENCOUNTER → 2022-08-20 14:28 | Outpatient (BNVA) | payer MEDICARE, SELFPAY | PROVIDERS: PCP Nurse Practitioner Family; Visit Provider Internal Medicine | DX: E78.2 Mixed hyperlipidemia (principal); I10 Essential (primary) hypertension; I48.92 Unspecified atrial flutter; Z79.01 Long term (current) use of anticoagulants; D62 Acute posthemorrhagic anemia; G70.00 Myasthenia gravis without (acute) exacerbation; E66.9 Obesity, unspecified; Z68.35 Body mass index [BMI] 35.0-35.9, adult | CPT/HCPCS: 99214 ==

== ENCOUNTER → 2023-03-11 13:35 | Outpatient (BNVA) | payer MEDICARE, SELFPAY | PROVIDERS: PCP Nurse Practitioner Family; Visit Provider Internal Medicine | DX: E78.2 Mixed hyperlipidemia (principal); I10 Essential (primary) hypertension; I48.92 Unspecified atrial flutter; Z79.01 Long term (current) use of anticoagulants; D62 Acute posthemorrhagic anemia; G70.00 Myasthenia gravis without (acute) exacerbation; E66.9 Obesity, unspecified; Z68.35 Body mass index [BMI] 35.0-35.9, adult | CPT/HCPCS: 99214 ==

== ENCOUNTER → 2023-09-09 14:10 | Outpatient (BNVA) | payer MEDICARE, SELFPAY | PROVIDERS: PCP Nurse Practitioner Family; Visit Provider Internal Medicine | DX: E78.2 Mixed hyperlipidemia (principal); I35.0 Nonrheumatic aortic (valve) stenosis; I10 Essential (primary) hypertension; Z79.01 Long term (current) use of anticoagulants; D62 Acute posthemorrhagic anemia; G70.00 Myasthenia gravis without (acute) exacerbation; E66.9 Obesity, unspecified; I48.92 Unspecified atrial flutter; Z68.35 Body mass index [BMI] 35.0-35.9, adult | CPT/HCPCS: 99214 ==

== ENCOUNTER 2023-09-25 09:31 | Outpatient (CLI) | payer MEDICARE, SELFPAY ==
--- NOTE | 2023-09-25 10:15 | USCV_ITS ---
Blaine Rodriguez Age: 73 Gender: M : 1950 Exam Date: 09/25/2023 09:40 Ordering Phys: Levi Covington M.D ([email or web address]) Technologist: Exam Location: [facility] – [place] Indication: as BP: 130 / 70 HR: 109 Rhythm: Sinus Technical Quality: Adequate MEASUREMENTS (Male / Female) Normal Values 2D ECHO LV Diastolic Diameter PLAX 3.5 cm 4.2 - 5.9 / 3.9 - 5.3 cm IVS Diastolic Thickness 1.5 cm 0.6 - 1.0 / 0.6 - 0.9 cm IVS Systolic Thickness 1.6 cm LVPW Diastolic Thickness 1.4 cm 0.6 - 1.0 / 0.6 - 0.9 cm LVPW Systolic Thickness 1.9 cm LVOT Diameter 2.1 cm LV Ejection Fraction 2D Teich 61.9 % LV Ejection Fraction MOD 2C 54.8 % LV Ejection Fraction 2C AL 56.1 % LA Diameter 3.8 cm RA Systolic Volume 4C AL 44.0 ml RA Systolic Volume 4C MOD 42.3 ml LA Sys Volume AL 76.8 cm cubed LA Sys Volume Index AL 33.2 cm cubed/m squared Aorta at Sinotubular Diameter 3.2 cm M-MODE LA Ao Ratio MM 1.0 AV Cusp Separation MM 1.9 cm DOPPLER AV Peak Velocity 249.3 cm/s LVOT Peak Velocity 88.0 cm/s AV Area Cont Eq vti 1.3 cm squared AV Area Cont Eq pk 1.2 cm squared MV Peak Velocity 136.0 cm/s MV Area PHT 4.3 cm squared Mitral E to A Ratio 2.0 TV Peak Velocity 199.5 cm/s TR Peak Velocity 247.0 cm/s TR Peak Gradient 24.4 mmHg TV Peak E Velocity 82.0 cm/s Right Atrial Pressure 3.0 mmHg Pulmonary Artery Systolic Pressu 27.4 mmHg PV Peak Velocity 101.0 cm/s FINDINGS Left Ventricle Left ventricle is normal size. LV systolic function is normal with EF of 55 to 60%. No regional wall motion abnormalities are seen. Right Ventricle Normal in size and function Right Atrium Normal in size Left Atrium Normal in size. Mitral Valve Structurally normal mitral valve. Aortic Valve Aortic valve is thickened. Mild aortic stenosis with aortic valve area 1.34 cm2 and mean gradient of 14 mmHg Tricuspid Valve Mild tricuspid regurgitation. Pulmonary artery systolic pressure is normal. Pulmonic Valve Not well visualized Pericardium Normal Aorta IVC Appears to be normal CONCLUSIONS LV systolic function is normal with EF of 55 to 60%. Mild aortic stenosis. Mild tricuspid regurgitation Compared to prior echocardiogram from 2021, no significant changes are seen Levi Covington MD (Electronically Signed) Final Date: 09 October 2023 19:19 S
== END 2023-09-25 09:32 | disposition home or self-care (01) ==
LOC: RAD 09:31
PROVIDERS: PCP Nurse Practitioner Family; Visit Provider Internal Medicine
DX: I35.0 Nonrheumatic aortic (valve) stenosis (principal); I07.1 Rheumatic tricuspid insufficiency
CPT/HCPCS: 93306

== ENCOUNTER → 2024-03-04 15:28 | Outpatient (BNVA) | payer MEDICARE, SELFPAY | PROVIDERS: PCP Nurse Practitioner Family; Visit Provider Podiatrist Foot & Ankle Surgery | DX: L60.3 Nail dystrophy (principal); E11.42 Type 2 diabetes mellitus with diabetic polyneuropathy | CPT/HCPCS: 11721; 99203 ==

== ENCOUNTER → 2024-03-18 09:22 | Outpatient (BNVA) | payer MEDICARE, SELFPAY | PROVIDERS: PCP Nurse Practitioner Family; Visit Provider Nurse Practitioner Family | DX: I35.0 Nonrheumatic aortic (valve) stenosis (principal); I10 Essential (primary) hypertension; Z79.01 Long term (current) use of anticoagulants; Z86.79 Personal history of other diseases of the circulatory system; E78.2 Mixed hyperlipidemia; D64.9 Anemia, unspecified | CPT/HCPCS: 99214 ==

== ENCOUNTER → 2024-05-11 13:45 | Outpatient (BNVA) | payer MEDICARE, SELFPAY | PROVIDERS: PCP Nurse Practitioner Family; Visit Provider Podiatrist Foot & Ankle Surgery | DX: L60.3 Nail dystrophy (principal); G62.9 Polyneuropathy, unspecified; E11.42 Type 2 diabetes mellitus with diabetic polyneuropathy; Z79.84 Long term (current) use of oral hypoglycemic drugs | CPT/HCPCS: 11721 ==

== ENCOUNTER → 2024-07-29 10:32 | Outpatient (BNVA) | payer MEDICARE, SELFPAY | PROVIDERS: PCP Nurse Practitioner Family; Visit Provider Podiatrist Foot & Ankle Surgery | DX: E11.42 Type 2 diabetes mellitus with diabetic polyneuropathy (principal); L60.3 Nail dystrophy; G62.9 Polyneuropathy, unspecified; Z79.84 Long term (current) use of oral hypoglycemic drugs | CPT/HCPCS: 11721 ==

== ENCOUNTER 2024-09-11 07:18 | Outpatient (CLI) | payer MEDICARE, SELFPAY ==
--- NOTE | 2024-09-11 07:45 | USCV_ITS ---
Blaine Rodriguez Age: 74 Gender: M : 1950 Exam Date: 09/11/2024 07:28 Ordering Phys: Aundrea Abdalla Technologist: STACEY [place] [facility] [place]: BP: 115 / 71 HR: 82 Rhythm: Sinus Technical Quality: Adequate MEASUREMENTS (Male / Female) Normal Values 2D ECHO LV Diastolic Diameter PLAX 6.2 cm 4.2 - 5.9 / 3.9 - 5.3 cm IVS Diastolic Thickness 0.9 cm 0.6 - 1.0 / 0.6 - 0.9 cm IVS Systolic Thickness 1.7 cm LVPW Diastolic Thickness 1.0 cm 0.6 - 1.0 / 0.6 - 0.9 cm LVPW Systolic Thickness 1.8 cm LVOT Diameter 2.0 cm LV Ejection Fraction 2D Teich 54.0 % LV Ejection Fraction MOD 4C 63.5 % LV Ejection Fraction MOD 2C 62.9 % LV Ejection Fraction 2C AL 64.5 % LA Diameter 4.1 cm RA Systolic Volume 4C AL 58.8 ml RA Systolic Volume 4C MOD 55.1 ml LA Sys Volume AL 54.8 cm cubed LA Sys Volume Index AL 24.1 cm cubed/m squared Aorta at Sinotubular Diameter 3.4 cm M-MODE LA Ao Ratio MM 1.3 AV Cusp Separation MM 1.7 cm DOPPLER AV Peak Velocity 218.0 cm/s LVOT Peak Velocity 77.0 cm/s AV Area Cont Eq vti 1.1 cm squared AV Area Cont Eq pk 1.1 cm squared MV Peak Velocity 130.0 cm/s MV Area PHT 4.6 cm squared Mitral E to A Ratio 2.8 TR Peak Velocity 79.0 cm/s TR Peak Gradient 2.5 mmHg TV Peak E Velocity 85.0 cm/s PV Peak Velocity 95.0 cm/s FINDINGS Left Ventricle Normal left ventricular size and systolic function, EF 63%. Mild left ventricular hypertrophy. No regional wall motion abnormalities. Right Ventricle The right ventricle is normal in size and function. Right Atrium Mildly increased right atrial size. Left Atrium Mildly increased left atrial size. Mitral Valve No gross abnormalities noted Aortic Valve Moderate aortic valve calcification. Possibly mild aortic valve stenosis. Because of the poor Doppler signals, aortic valve area calculation could be misleading. Peak velocity was 2.27 m/s with a peak gradient of 21 and a mean gradient of 12 mmHg Tricuspid Valve Tricuspid valve not well visualized. Pulmonic Valve Pulmonic valve not well visualized. Pericardium No pericardial effusion. Aorta Normal ascending aorta dimension. IVC Inferior vena cava not visualized. CONCLUSIONS Normal left ventricular size and systolic function, EF 63%. Mild left ventricular hypertrophy. No regional wall motion abnormalities. Possibly mild aortic valve stenosis. Because of the poor Doppler signals, aortic valve area calculation could be misleading. Peak velocity was 2.27 m/s with a peak gradient of 21 and a mean gradient of 12 mmHg. Moderate aortic valve calcification. Mild biatrial enlargement. There is no pericardial effusion. Technically difficult study because of the poor ultrasonic window. Compared to the study from 09/25/2023, possibly no significant change-comparison is difficult because of the differences in the technical quality Dr Rafiq Rodriguez MD [facility] (Electronically Signed) Final Date: 14 Sep 2024 08:01 S
== END 2024-09-11 07:19 | disposition home or self-care (01) ==
PROVIDERS: PCP Nurse Practitioner Family; Visit Provider Nurse Practitioner Family
DX: I35.0 Nonrheumatic aortic (valve) stenosis (principal); I51.7 Cardiomegaly; I35.8 Other nonrheumatic aortic valve disorders; R93.1 Abnormal findings on diagnostic imaging of heart and coronary circulation
CPT/HCPCS: 93306

== ENCOUNTER → 2024-09-16 12:02 | Outpatient (BNVA) | payer MEDICARE, SELFPAY | PROVIDERS: PCP Nurse Practitioner Family; Visit Provider Internal Medicine | DX: E78.2 Mixed hyperlipidemia (principal); I10 Essential (primary) hypertension; Z86.79 Personal history of other diseases of the circulatory system; Z79.01 Long term (current) use of anticoagulants; D62 Acute posthemorrhagic anemia; G70.00 Myasthenia gravis without (acute) exacerbation; E66.9 Obesity, unspecified; Z68.35 Body mass index [BMI] 35.0-35.9, adult | CPT/HCPCS: 99214 ==

== ENCOUNTER → 2024-09-30 10:41 | Outpatient (BNVA) | payer MEDICARE, SELFPAY | PROVIDERS: PCP Nurse Practitioner Family; Visit Provider Podiatrist Foot & Ankle Surgery | DX: E11.42 Type 2 diabetes mellitus with diabetic polyneuropathy (principal); L60.3 Nail dystrophy; G62.9 Polyneuropathy, unspecified; Z79.84 Long term (current) use of oral hypoglycemic drugs | CPT/HCPCS: 11721 ==

== ENCOUNTER 2024-10-20 07:53 | Outpatient (CLI) | payer MEDICARE, SELFPAY ==
--- NOTE | 2024-10-20 07:54 | MR_ITS ---
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 TECHNIQUE: Sagittal and axial multisequence imaging is submitted. Straightening of the normal cervical lordosis. Slight anterolisthesis of C3 with a small central disc osteophyte. Additional disc osteophytes at C5-6 and C6-7. Mild anterior compression fractures in the thoracic and lumbar spine. Thoracic anterior compression fractures at T8, T9, T10, T11 and T12. T11 fracture is the most significant with 80% loss of height. No retropulsion. Additional fractures involving all lumbar vertebral bodies. Biconcave fractures at L3, L4 and L5. No marrow edema within the lumbar fractures. There is a small amount of marrow edema along the superior anterior endplate of T12. Conus terminates normally at L1-2 disc level. Bilateral sacral marrow edema, greater on the LEFT than the RIGHT. Sacral edema begins in the S2 segment and continues inferiorly. L1-L2: Marked annular disc bulging encroaching on the ventral thecal sac and subarticular recesses. Fluid in the facet joints. Bilateral facet arthritis. LEFT foraminal disc protrusion and osteophyte. Smaller disc osteophyte RIGHT foramen. Moderate central, bilateral subarticular recess and foraminal stenosis. L2-L3: Diffuse annular disc bulging with facet and ligamentum flavum arthritis. Mild central, subarticular recess and RIGHT foraminal stenosis. Moderate LEFT foraminal stenosis. L3-L4: Diffuse annular disc bulging with facet and ligamentum flavum hypertrophy. Bilateral foraminal disc osteophyte complexes. Moderate to severe bilateral foraminal stenosis with mild central and subarticular recess stenosis. L4-L5: Diffuse annular disc bulging encroaching upon the ventral thecal sac and subarticular recesses. Facet joint arthritis. Severe bilateral foraminal stenosis due to disc and osteophyte disease. Mild central and subarticular recess stenosis. L5-S1: Diffuse annular disc bulging encroaching upon the ventral thecal sac and subarticular recesses. Severe bilateral foraminal stenosis due to disc osteophyte complexes. Mild central and subarticular recess stenosis. Paravertebral soft tissues are negative. MR/MR lumbar spine wo con* [id number] IMPRESSION: 1. Remote compression fractures involving the lumbar vertebral bodies. Biconca ve fractures at L3, L4 and L5. No retropulsion. 2. Multilevel areas of significant stenosis in the lumbar spine. 3. L4-5 and L5-S1: Mild central and subarticular recess stenosis with severe b ilateral foraminal stenosis due to disc osteophyte complexes. 4. L3-4: Moderate to severe bilateral foraminal stenosis with mild central and subarticular recess stenosis. 5. L1-2: Moderate central, bilateral subarticular recess and foraminal stenosi s. LEFT foraminal disc protrusion and osteophyte. 6. Edema within the sacrum. Incompletely visualized sacral edema. Most consist ent with sacral insufficiency fractures.
--- NOTE | 2024-10-20 07:54 | MR_ITS ---
WS: [id number] MRI THORACIC SPINE noncontrast. HISTORY: INTERVERTEBRAL DISC DISORDERS W/RADICULOPATHY COMPARISON: None available. TECHNIQUE: Multiplanar sequences are performed in sagittal and axial planes. Disc osteophyte disease with central disc protrusions at C3-4, C4-5 and C5-6. Marrow edema inferior endplate of T5. Very small amount of marrow edema along the adjacent endplates of T8 and T9. Tiny amount of marrow edema along the inferior endplate of T12 severe compression fracture with a small amount of edema along the superior endplate. Nonacute fractures at T6, T7 and T11. Signal within the cord is normal. There is very slight retrolisthesis of approximately 2 mm of the posterior superior endplate of T12 without contact on the cord. T1-2: Mild bilateral facet arthritis. T2-3: Mild bilateral facet arthritis and foraminal narrowing. T3-4: Mild facet arthritis and foraminal narrowing. T4-5: Mild foraminal stenosis. T5-6: Mild to moderate bilateral foraminal stenosis. T6-7: Mild to moderate bilateral foraminal stenosis. T7-8: Mild bilateral foraminal stenosis. T8-9: Moderate bilateral foraminal stenosis and facet arthritis. T9-10: Diffuse annular disc bulge with moderate facet disease. Moderate foraminal stenosis. T10-11: Diffuse annular disc bulging with osteophytic ridging and facet arthritis. Mild to moderate central and moderate bilateral foraminal stenosis. T11-12: Diffuse disc bulging. Moderate to advanced facet arthritis. Mild central and bilateral foraminal stenosis. Paravertebral soft tissues are negative. MR/MR thoracic spin wo con* [id number] IMPRESSION: 1. Numerous thoracic spine compression fractures of various ages. 2. There is a small amount of edema along the endplates of T5, T8, T9 and T10. 3. Severe T12 compression fracture with minimal retrolisthesis of the superior endplate and a small amount of marrow edema. 4. Additional nonacute fractures at T6, T7 and T11. 5. Normal signal within the cord. 6. Facet joint arthropathy and stenosis at all levels of the thoracic spine as described above. The most significant central and foraminal stenosis from T8-9 through T11-12.
== END 2024-10-20 07:54 | disposition home or self-care (01) ==
PROVIDERS: PCP Nurse Practitioner Family; Visit Provider Anesthesiology
DX: M51.16 Intervertebral disc disorders with radiculopathy, lumbar region (principal); M48.061 Spinal stenosis, lumbar region without neurogenic claudication; M25.78 Osteophyte, vertebrae
CPT/HCPCS: 72146; 72148

== ENCOUNTER → 2024-12-02 10:15 | Outpatient (BNVA) | payer MEDICARE, SELFPAY | PROVIDERS: PCP Nurse Practitioner Family; Visit Provider Podiatrist Foot & Ankle Surgery | DX: E11.42 Type 2 diabetes mellitus with diabetic polyneuropathy (principal); L60.3 Nail dystrophy; G62.9 Polyneuropathy, unspecified; Z79.84 Long term (current) use of oral hypoglycemic drugs | CPT/HCPCS: 11721; 99214 ==

== ENCOUNTER → 2024-12-15 14:06 | Outpatient (BNVA) | payer MEDICARE, SELFPAY | PROVIDERS: PCP Nurse Practitioner Family; Visit Provider Orthopaedic Surgery | DX: M48.062 Spinal stenosis, lumbar region with neurogenic claudication (principal); E11.9 Type 2 diabetes mellitus without complications; Z01.818 Encounter for other preprocedural examination | CPT/HCPCS: 36415; 72072; 72110; 80053; 81001; 83036; 85025; 99204 ==

== ENCOUNTER → 2024-12-23 08:51 | Outpatient (BNVA) | payer MEDICARE, SELFPAY | PROVIDERS: PCP Nurse Practitioner Family; Visit Provider Family Medicine | DX: Z01.818 Encounter for other preprocedural examination (principal); I48.91 Unspecified atrial fibrillation; I21.9 Acute myocardial infarction, unspecified | CPT/HCPCS: 93005 ==

== ENCOUNTER 2024-12-30 08:48 | Outpatient (CLI) | payer MEDICARE, SELFPAY ==
--- NOTE | 2024-12-30 08:54 | US_ITS ---
WS: [id number] RIGHT UPPER QUADRANT ULTRASOUND HISTORY: ELEVATION OF LEVELS OF LIVER TRANSAMINASE LEVELS COMPARISON: None available. Liver: 22.9 cm in length. Enlarged liver. Liver is very dense. Deep liver towards the diaphragmatic surface is not visualized. Portal triads are not apparent. No mass identified. Portal Vein: Normal hepatopetal flow with monophasic waveform. Gallbladder: Normally distended gallbladder with no stones or wall thickening. CBD: 0.5 cm Pancreas: Not visualized. Right kidney: 12.4 cm in length. Normal size and echogenicity. No hydronephrosis or mass. Aorta and IVC: Unremarkable abdominal aorta and IVC. No ascites. US/US abdomen limited [id number] IMPRESSION: 1. Negative gallbladder. 2. Enlarged, dense liver. Likely hepatic steatosis. 3. Pancreas not visualized.
== END 2024-12-30 08:49 | disposition home or self-care (01) ==
LOC: RAD 08:49
PROVIDERS: PCP Nurse Practitioner Family; Visit Provider Dietitian, Registered
DX: R74.01 Elevation of levels of liver transaminase levels (principal); R16.0 Hepatomegaly, not elsewhere classified
CPT/HCPCS: 76705

== ENCOUNTER → 2025-02-17 09:01 | Outpatient (BNVA) | payer MEDICARE, SELFPAY | PROVIDERS: PCP Nurse Practitioner Family; Visit Provider Podiatrist Foot & Ankle Surgery | DX: E11.42 Type 2 diabetes mellitus with diabetic polyneuropathy (principal); L60.3 Nail dystrophy; G62.9 Polyneuropathy, unspecified; Z79.84 Long term (current) use of oral hypoglycemic drugs | CPT/HCPCS: 11721 ==